=== PATIENT | male | born 1980 | race Two or more races ===

== ENCOUNTER 2024-08-10 10:42 | Outpatient (AMB) | payer MEDICAID, SELFPAY ==
[2024-08-10 10:56] VITALS: BP 144/89; PULSE 91; RESP 18; TEMP 36.4; O2SAT 98; BMI 22.2
--- NOTE | 2024-08-10 10:56 | PD.GSCLVISIT ---
Vital Signs - [facility] 08/10/24 10:56 Height 1.75 m Height Method Stated Weight 68.266 kg Weight Measurement Method Standing Scale BMI 22.2 BP 144/89 H Blood Pressure Source Automatic Cuff Blood Pressure Location Right Upper Arm Position Sitting Respiration 18 Pulse 91 Pulse Source Monitor Temp 97.5 F Temp Source Temporal Artery Scan Pulse Oximetry (%) 98 Oxygen Delivery Method Room Air Med/Allergies Allergies & Medications Allergies No Known Allergies Allergy (Verified 08/10/24 10:58) Medication Reconciliation sennosides 8.6 mg tablet (senna) 8.6 mg PO BID 07/25/24 [History Confirmed 08/10/24] flash glucose scanning reader (EcoLogic SolutionsStyle Jena 2 Tamiment) #1 ea 08/02/24 [Rx Confirmed 08/10/24] flash glucose sensor (FreeStyle Jena 2 Sensor kit) #2 ea 08/02/24 [Rx Confirmed 08/10/24] gabapentin 100 mg capsule 200 mg (2 x 100 mg) PO BID pain #30 caps 08/02/24 [Rx Confirmed 08/10/24] ibuprofen 600 mg tablet 600 mg PO Q6H PRN pain #30 tabs 08/02/24 [Rx Confirmed 08/10/24] metformin 500 mg tablet 500 mg PO BID #60 tabs 08/02/24 [Rx Confirmed 08/10/24] oxycodone-acetaminophen 5 mg-325 mg tablet (Percocet) 1 tab PO Q6H PRN pain #30 tabs 08/02/24 [Rx Confirmed 08/10/24] pen needle, diabetic 31 gauge x 3/16 (Pen Needle) #100 ea 08/02/24 [Rx Confirmed 08/10/24] blood sugar diagnostic (Accu-Chek Guide test strips) #100 ea 08/06/24 [Rx Confirmed 08/10/24] blood-glucose meter (Accu-Chek Guide Me Glucose Meter) #1 ea 08/06/24 [Rx Confirmed 08/10/24] insulin glargine 100 unit/mL (3 mL) subcutaneous pen (Lantus Solostar U-100 Insulin) 10 unit (0.1 mL) subcut QPM #15 mL 08/06/24 [Rx Confirmed 08/10/24] lisinopril 5 mg tablet 5 mg PO QDAY #30 tabs 08/06/24 [Rx Confirmed 08/10/24] multivitamin with minerals-folic acid 120 mcg chewable tablet (Diabetic Multivitamin) 1 tab PO Q OTHER DAY #30 tabs 08/06/24 [Rx Confirmed 08/10/24] MA Intake Visit Data Collection New Patient or Established: Established Patient (seen at [facility] within 3 years) Seen by Clinical Staff ONLY (RN/MA): No Reason for Visit:: F/U ABDOMINAL PAIN Pain Present Currently: No Technician Semiconductor Development Required: Yes PCP or OBGYN visit in last 3 months: Yes Hx Now: No Do You Feel Safe at Home: Yes Authorities Contacted: N/A Smoking Status Smoking Status: Never smoker Immunization / Flu Flu Vaccine in the Last 12 Months: No Flu Vaccine Exclusion Criteria: No Exclusion Criteria Past Medical History Past Medical History NEUROLOGIC: Negative Seizures CARDIAC: Negative Cardiac Disorders, Congestive Heart Failure or Hypertension RESPIRATORY: Negative Chronic Obstructive Pulmonary Disease (COPD) or Asthma GENITOURINARY: Negative Renal Disease ENDOCRINE: Negative Endocrine Disorders, Diabetes Mellitus Type 1 or Diabetes Mellitus Type 2 HEMATOLOGIC: Negative Sickle Cell Disease OTHER HISTORY: Negative Blood Transfusions or Anesthesia Reactions Social History SMOKING STATUS: Smoking status: Never smoker ALCOHOL: Alcohol Intake: Current HOUSING: Housing: Apartment LIVES WITH: Lives With: Spouse HPI HPI Narrative 43M who presented with signs and symptoms of SBO, findings of obstructing colon mass now s/p laparotomy, segmental colectomy and colo-colo anastomosis 07/30 here for planned follow up. Pt reports feeling well with no pain, no nausea, he is eating well and having regular BMs. He followed up with his PCP and received a referral to Dr Marquis, is awaitting the appt ROS Review of Systems Systems Reviewed: All systems reviewed, normal except as documented Objective/Exam General General Appearance: alert, cooperative and well groomed Resp Respiratory exam: Absent respiratory distress Abdominal Abdominal exam: Present soft and incision (midline incision healing well with no erythema, no fluctuance or tenderness, ludy removed); Absent distention or tenderness Results Pathology: invasive adenoCA with focal signet ring features, [id number] Assessment & Plan Diagnosis / Problem List (1) Colorectal cancer, stage III: Status: Acute Assessment & Plan: 43M who presented with signs and symptoms of SBO, findings of obstructing colon mass now s/p laparotomy, segmental colectomy and colo-colo anastomosis 07/30, with pathology showing [id number] invasive adenocarcinoma with signet ring features. I explained that adjuvant chemotherapy is recommended to prevent recurrence and offered chemoport insertion to hopefully expedite the process. I explained benefits/risks including bleeding, infection and injury to nearby structures including pneumothorax. Pt expressed understanding and agrees to proceed Chemoport insertion 08/26 Office Procedures [facility] Level of Care Nursing/Assessment Patient Status: Established Patient Nursing Assessment/Reassesment: Medication Reconciliation, Update PMH in EMR and Vital Signs Coordination of Care: Complex Care and Chronic Disease 1-5, Education Complex Pt/Fam, Consent,records obtained, informed consent, Results/Orders obtained and Staff clarify orders Special Needs: Language special needs Established Patient Charge Established Patient Point Assignment: 95 Established Patient Point Charge: EP Level 3 (80-115) Patient Portal Questionaires Social History Living Situation History Housing: Apartment Tobacco History Smoking Status: Never smoker Alcohol History Alcohol Intake: Current Domestic Abuse History Do You Feel Safe at Home: Yes Review of Systems Report any current symptoms Only answer those that you have currently: Past Medical History Past Medical History Have you ever been diagnosed with any of the following: Neurological Problems Seizures: No Cardiology Problems Congestive Heart Failure: No Hypertension: No Respiratory Problems Chronic Obstructive Pulmonary Disease (COPD): No Asthma: No Genital/Urinary Problems Renal Disease: No Endocrine Problems Diabetes Mellitus Type 1: No Diabetes Mellitus Type 2: No Blood Problems Sickle Cell Disease: No Other Problems Blood Transfusions: No Anesthesia Reactions: No
== END 2024-08-10 11:44 | disposition home or self-care (01) ==
PROVIDERS: Supervising Provider Surgery; Visit Provider Surgery
DX: Z48.3 Aftercare following surgery for neoplasm (principal); C18.9 Malignant neoplasm of colon, unspecified
CPT/HCPCS: 99213; G0463

== ENCOUNTER 2024-08-27 09:48 | Outpatient (AMB) | payer MEDICAID, SELFPAY ==
[2024-08-27 09:58] VITALS: BP 114/75; PULSE 87; RESP 19; TEMP 36.6; O2SAT 98
--- NOTE | 2024-08-27 09:58 | ACNOTE_ITS ---
Vital Signs 08/27/24 09:58 Weight 67.132 kg Weight Measurement Method Standing Scale BP 114/75 Blood Pressure Source Automatic Cuff Blood Pressure Location Left Upper Arm Position Sitting Respiration 19 Pulse 87 Pulse Source Monitor Temp 97.8 F Temp Source Oral Pulse Oximetry (%) 98 Oxygen Delivery Method Room Air Allergies/Meds Allergies & Medications Allergies No Known Allergies Allergy (Verified 08/27/24 09:59) Medication Reconciliation insulin glargine 100 unit/mL (3 mL) subcutaneous pen (Lantus Solostar U-100 Insulin) 10 unit (0.1 mL) subcut QPM #15 mL 08/06/24 [Rx Confirmed 08/27/24] lisinopril 5 mg tablet 5 mg PO QDAY #30 tabs 08/06/24 [Rx Confirmed 08/27/24] gabapentin 100 mg capsule 200 mg PO BID PRN pain 08/25/24 [History Confirmed 08/27/24] simethicone 80 mg chewable tablet 80 mg PO TID PRN abdominal distention #90 tabs 08/26/24 [Rx Confirmed 08/27/24] lancets 23 gauge (Acti-Kavon Lancets) #200 ea 08/27/24 [Rx] metformin 500 mg tablet 500 mg PO BID #60 tabs 08/27/24 [Rx] MA Intake Visit Data Collection New Patient or Established: Established Patient (seen at [facility] within 3 years) Seen by Clinical Staff ONLY (RN/MA): No Pain Present Currently: No Pain scale:: 0 Pain Scale Used: Morfin-Jimenes/Numerical PCP or OBGYN visit in last 3 months: Yes Do You Feel Safe at Home: Yes Authorities Contacted: N/A Smoking Status Smoking Status: Never smoker Immunization / Flu Flu Vaccine in the Last 12 Months: No Flu Vaccine Exclusion Criteria: No Exclusion Criteria Past Medical History Past Medical History NEUROLOGIC: Negative Neurological Disorders or Seizures CARDIAC: Positive Cardiac Disorders and Hypertension; Negative Congestive Heart Failure RESPIRATORY: Negative Chronic Obstructive Pulmonary Disease (COPD) or Asthma GASTROINTESTINAL: Positive Colorectal Cancer (July 2024); Negative Gastrointestinal Disorders (Constipation) or Hepatitis GENITOURINARY: Negative Genitourinary Disorders or Renal Disease ENDOCRINE: Positive Endocrine Disorders and Diabetes Mellitus Type 2; Negative Diabetes Mellitus Type 1 HEMATOLOGIC: Positive Blood Disorders and Anemia; Negative Sickle Cell Disease OTHER HISTORY: Positive Hospitalization (colon resection), Chicken Pox, Measles, Cancer and Colorectal Cancer (July 2024); Negative Shingles, Blood Transfusions, Blood Transfusion Reaction or Anesthesia Reactions Family History FAMILY HISTORY: Positive Family Surgery; Negative Family Psychiatric Problems, Family Respiratory Disorders, Family Cardiac Disorders, Family Gastrointestinal Problems, Family Cancer or Family Anesthesia Reaction Surgical History SURGICAL: Positive Bowel Surgery (Bowel resection) Social History SMOKING STATUS: Smoking status: Never smoker ALCOHOL: Alcohol Intake: Former HOUSING: Housing: Apartment LIVES WITH: Lives With: Spouse Patient Portal Questiondamaris Social History Living Situation History Housing: Apartment Tobacco History Smoking Status: Never smoker Alcohol History Alcohol Intake: Former Domestic Abuse History Do You Feel Safe at Home: Yes Review of Systems Report any current symptoms Only answer those that you have currently: Past Medical History Past Medical History Have you ever been diagnosed with any of the following: Neurological Problems Seizures: No Cardiology Problems Congestive Heart Failure: No Hypertension: Yes Respiratory Problems Chronic Obstructive Pulmonary Disease (COPD): No Asthma: No Stomache/Intestinal Problems Hepatitis: No Colorectal Cancer: Yes (July 2024) Genital/Urinary Problems Renal Disease: No Endocrine Problems Diabetes Mellitus Type 1: No Diabetes Mellitus Type 2: Yes Blood Problems Anemia: Yes Sickle Cell Disease: No Other Problems Hospitalization: Yes (colon resection) Shingles: No Blood Transfusions: No Blood Transfusion Reaction: No Anesthesia Reactions: No Chicken Pox: Yes Measles: Yes Cancer: Yes History of Present Illness HPI Narrative Patient is a 43 yo male with recently diagnosed invasive adenocarcinoma s/p se gment colectomy with colo-colo anastamosis and newly diagnosed diabetes mellitus that presented to [facility] ffor follow up and medication refill.Patient states to be felling better and is tolerating a regular diet now. Patient did have chemo port placed at right internal jugular vein on 08/26/[address] Martinez. Patient asked for refill on his metformin. Patient does have a follow up appointment on September 07 at cancer center for evaluation. Patient does endorse slight pain on right side of chest where chemo port was inserted, but only during palpation. Patient denies any bloody stools at this time or decreased appetite. Objective/Exam Narrative Physical exam: Gen: Well-developed, alert and oriented x 3, In good spirits. CVS: RRR. No M/R/G. Resp: CTA B/L. No rhonchi, rales, crackles or wheezing. Abd: soft, non-distended. Nontender. Active bowel sounds. Non tender. MSK: Good ROM in BUE & BLE. No edema or rash. Psych: appropriate mood and affect. Assessment & Plan Diagnosis / Problem List (1) Adenocarcinoma: Status: Acute Assessment & Plan: Patient with recent invasive adenocarcinoma of the colon diagnosis status post colon resection with colon to colon anastomosis. Biopsy results show pT4a N2b well-differentiated invasive adenocarcinoma with 8 out of 19 lymph nodes positive for malignancy. Plan: F/u with appointment on September 07 at cancer center. Chemo port inserted on 08/26/24 Continue with pain medication as needed. (2) Diabetes mellitus, insulin dependent (IDDM), uncontrolled: Status: Acute Assessment & Plan: Newly diagnosed diabetes mellitus A1c 10.1. Plan: Patient on Lantus 10 units daily Patient on metformin 500 twice daily Patient to follow-up in 2 months with glucometer readings and will repeat A1c. (3) Hypertension associated with diabetes: Status: Acute Assessment & Plan: Stable Plan: Continue on lisinopril 5 mg daily Plan Patient will follow-up with oncology and surgery. Patient to continue with insulin and metformin. Patient to follow-up in 2 month, will repeat A1c during next visit. Additional Assessment Attending note: I, Vamsi Landaverde MD, attest that I was physically present for the chirinos portions of the service and evaluated the patient with the resident and I reviewed and discussed the case with the resident and agree with the resident's findings and plans of care as documented above. Recent diagnosis of invasive adenocarcinoma of the colon status post segmental colectomy with anastomosis. Newly diagnosed diabetes mellitus insulin requiring. Diabetes self-care reviewed including size, footcare, eye care. Tolerating metformin and Lantus. Patient had chemotherapy port inserted day prior. Has follow-up on September 07 at cancer treatment center. Afebrile with stable vital signs today. Vamsi Landaverde MD Physician Billing Established Patient Established Patient: E/M Level 3-CPT 34247 Office Procedures [facility] Level of Care Nursing/Assessment Patient Status: Established Patient Nursing Assessment/Reassessment: Medication Reconciliation, Update PMH in EMR and Vital Signs Coordination of Care: Complex Care and Chronic Disease 1-5, Education Complex Pt/Fam and Staff clarify orders Established Patient Charge Established Patient Point Assignment: 85 Established Patient Point Charge: Level 3 (80-115)
== END 2024-08-27 10:32 | disposition home or self-care (01) ==
LOC: HODAHC 09:48
PROVIDERS: PCP Student in an Organized Health Care Education/Training Program; Referring Provider Student in an Organized Health Care Education/Training Program; Supervising Provider Internal Medicine; Visit Provider Student in an Organized Health Care Education/Training Program
DX: E11.9 Type 2 diabetes mellitus without complications (principal); Z79.84 Long term (current) use of oral hypoglycemic drugs; C18.9 Malignant neoplasm of colon, unspecified; Z79.4 Long term (current) use of insulin; I15.2 Hypertension secondary to endocrine disorders; Z79.899 Other long term (current) drug therapy
CPT/HCPCS: 99213; G0463

== ENCOUNTER 2024-10-06 07:41 | Outpatient (RCR) | payer MEDICAID, SELFPAY ==
--- NOTE | 2024-09-07 10:07 | CTCCONSULT_ITS ---
[address] [address] RE: RAY PULIDO.: 1980 AGE: 44 DATE OF CONSULTATION: 09/07/2024 DIAGNOSIS: Malignant neoplasm of colon, unspecified [ICD10] C18.9 REFERRING PHYSICIAN: Raj Puckett PRIMARY PHYSICIAN :Raj Puckett REASON FOR CONSULTATION: Colon cancer HISTORY OF PRESENT ILLNESS: 44 yr old with new diagnosis of colon cancer. His baseline weight is 185 and lost weight to 142 pound s. He have healed well. Surgery was in July 2024. He does not have colostomy bag . PAST MEDICAL HISTORY: DM FAMILY HISTORY: Cancer History - Father - DENIES Cancer History - Mother - DENIES Cancer History - Sibling - DENIES, HAS 14 SIBLINGS WITH NO HISTORY CANCER Cancer History - Children - DENIES Cancer History - - COLON CANCER DX 07/30/24 SOCIAL HISTORY: Occupational History - SITE CONTROLLER Education Level - Completed something less than 8th grade Exercise Regularly - Yes 2-3 times a week Marital Status - Cultural/Pentecostalism Considerati - CAODAISM Tobacco Pack per Day - 0 Tobacco Use Note - DENIES ETOH Use Note - 1 CASE OF BEER A WEEK FOR MORE THAN 10YEARS, QUIT 2MONTHS AG Drug Note - DENIES Social History Note 2 - 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 GI: No nausea, vomiting, diarrhea or constipation. CVS: No palpitations or angina pains. Respiratory: No cough, chest pain or shortness of breath. VITAL SIGNS: Date 09/07/2024 Time 8:29 AM Vital Signs, Weight and PS ? ??T (F) (F) 99.7 ??P 97 ??B/P (mmHg) 133/84 ??Height (in) (inch) 69 ??Weight (lb) (lb) 147.4 ??BSA(D) (m*2) 1.81 PHYSICAL EXAMINATION: Alert and oriented times 4 Conjunctivae is white. Oral cavity is moist . Chest is clear to auscultation. No wheezes or rales audible. CVS: Rhythm regular, no murmurs or gallops present. Abdomen is soft. No hepatosplenomegaly. Extremities: No pedal edema or cyanosis. LABORATORY DATA: Date Time ASSESSMENT: 1) Colon cancer stage 3C t4b N2b M0 2) High risk features include T4b disease, neural vascular invasion and lymph nodes positive and invo lvement of the visceral p peritoneum. No perforation PLAN: Patient will need adjuvant chemotherapy for 6 months Port catheter already in place ?FOLFOX AJDUVANT FOR 6 MONTHS Discussed side effects of chemotherapy and benefits. I recommended chemotherapy and patient and agreed to chemotherapy after understanding the side effects. Magic mouthwash will be sent to patient to be used as needed. ORDERS: Infusion 5 Hours Comprehensive Metabolic Panel - 12 + CEA + CBC with Auto Diff MD Follow Up 3 Week + RETURN TO CLINIC: cc: Carlos Alberto Puckett, Referring: Raj Puckett Electronically Signed 09/07/2024 at 10:05 AM Dillon Capps MD Patient: RAY PULIDO : 1980 MR#: [id number] Account: [id number] FOLLOW UP NOTE Page 4 of 4
[2024-09-21 16:16] LABS: Basophils % (Auto) 1 % (0-2.5); Eosinophils # (Auto) 0.1 Thou/mm3 (0.0-0.5); Eosinophils % (Auto) 2 % (0-10); Hematocrit 32.7 % (41.0-53.0); Hemoglobin 11.7 g/dL (13.5-16.0); Immature Granulocytes % (Auto) 0 % (0-0); Immature Granulocytes Auto 0.01 Thou/mm3 (0.00-0.00); Lymphocytes # (Auto) 2.2 Thou/mm3 (1.0-4.8); Lymphocytes % (Auto) 36 % (10-50); Mean Corpuscular HGB Conc 35.8 g/dl (31.0-37.0); Mean Corpuscular Hemoglobin 27.5 pg (25.0-35.0); Mean Corpuscular Volume 77 fL (80-100); Monocytes # (Auto) 0.4 Thou/mm3 (0.0-0.8); Monocytes % (Auto) 6 % (0-12); Neutrophils # (Auto) 3.5 Thou/mm3 (1.8-7.7); Neutrophils % (Auto) 56 % (37-80); Nucleated Red Blood Cell % 0 /100 WBC (0); Platelet Count 283 Thou/mm3 (140-440); Red Blood Count 4.26 Miln/mm3 (4.50-5.90); White Blood Count 6.2 Thou/mm3 (3.8-10.6)
[2024-09-21 16:31] LABS: Alanine Aminotransferase 13 U/L (10-49); Albumin, Serum 4.9 gm/dL (3.5-5.0); Albumin/Globulin Ratio 1.9 (1.2-2.2); Alkaline Phosphatase 68 U/L (46-116); Anion Gap 8 (7-16); Aspartate Amino Transferase 16 U/L (0-34); BUN/Creatinine Ratio 18 Ratio (12-20); Bilirubin,Total 0.5 mg/dL (0.3-1.2); Blood Urea Nitrogen 11 mg/dL (9-23); Calcium 9.9 mg/dL (8.3-10.6); Calcium (Corrected) 9.9 mg/dL (8.5-10.1); Carbon Dioxide 27.9 mMol/L (20.0-31.0); Chloride 102 mMol/L (98-107); Creatinine (Component) 0.6 mg/dL (0.6-1.3); Globulin 2.6 gm/dL (2.3-3.5); Glucose 126 mg/dL (74-106); Osmolality,Calculated 277 (275-295); Potassium 3.8 mMol/L (3.4-5.1); Sodium 138 mMol/L (136-145); Total Protein 7.5 gm/dL (5.7-8.2); eGFR > 60 See Note
[2024-09-21 16:35] LABS: Carcinoembryonic Antigen 1.2 ng/mL (0.0-5.0)
[2024-10-05 10:29] LABS: Basophils % (Auto) 1 % (0-2.5); Eosinophils # (Auto) 0.1 Thou/mm3 (0.0-0.5); Eosinophils % (Auto) 1 % (0-10); Hematocrit 31.2 % (41.0-53.0); Hemoglobin 11.1 g/dL (13.5-16.0); Immature Granulocytes % (Auto) 0 % (0-0); Immature Granulocytes Auto 0.01 Thou/mm3 (0.00-0.00); Lymphocytes # (Auto) 1.6 Thou/mm3 (1.0-4.8); Lymphocytes % (Auto) 38 % (10-50); Mean Corpuscular HGB Conc 35.6 g/dl (31.0-37.0); Mean Corpuscular Hemoglobin 27.6 pg (25.0-35.0); Mean Corpuscular Volume 78 fL (80-100); Monocytes # (Auto) 0.3 Thou/mm3 (0.0-0.8); Monocytes % (Auto) 8 % (0-12); Neutrophils # (Auto) 2.3 Thou/mm3 (1.8-7.7); Neutrophils % (Auto) 53 % (37-80); Nucleated Red Blood Cell % 0 /100 WBC (0); Platelet Count 240 Thou/mm3 (140-440); RDW Standard Deviation 34.5 fL (35.1-43.9); Red Blood Count 4.02 Miln/mm3 (4.50-5.90); White Blood Count 4.3 Thou/mm3 (3.8-10.6)
[2024-10-05 10:48] LABS: Alanine Aminotransferase 12 U/L (10-49); Albumin, Serum 4.5 gm/dL (3.5-5.0); Albumin/Globulin Ratio 1.9 (1.2-2.2); Alkaline Phosphatase 67 U/L (46-116); Anion Gap 9 (7-16); Aspartate Amino Transferase 14 U/L (0-34); BUN/Creatinine Ratio 18 Ratio (12-20); Bilirubin,Total 0.7 mg/dL (0.3-1.2); Blood Urea Nitrogen 11 mg/dL (9-23); Carbon Dioxide 25.8 mMol/L (20.0-31.0); Chloride 102 mMol/L (98-107); Creatinine (Component) 0.6 mg/dL (0.6-1.3); Globulin 2.4 gm/dL (2.3-3.5); Glucose 239 mg/dL (74-106); Osmolality,Calculated 281 (275-295); Potassium 3.7 mMol/L (3.4-5.1); Sodium 137 mMol/L (136-145); Total Protein 6.9 gm/dL (5.7-8.2); eGFR > 60 See Note
[2024-10-05 10:50] LABS: Carcinoembryonic Antigen 1.1 ng/mL (0.0-5.0)
== END 2024-10-06 23:59 | disposition home or self-care (01) ==
LOC: SCTC 07:41
PROVIDERS: PCP Student in an Organized Health Care Education/Training Program; Referring Provider Student in an Organized Health Care Education/Training Program; Visit Provider Internal Medicine Hematology & Oncology
DX: Z51.11 Encounter for antineoplastic chemotherapy (principal); C18.9 Malignant neoplasm of colon, unspecified
CPT/HCPCS: 36591; 80053; 82378; 85025; 96366; 96367; 96368; 96375; 96411; 96413; 96415; 96416; 99213; 99424; 99425; A4216; J0640; J1100; J1453; J1642; J2405; J9190; J9263; G0463

== ENCOUNTER 2024-10-29 10:19 | Outpatient (AMB) | payer MEDICAID, SELFPAY ==
[2024-10-29 10:30] VITALS: BP 114/77; PULSE 107; RESP 16; TEMP 36.6; O2SAT 99; BMI 21.6
--- NOTE | 2024-10-29 10:30 | PD.RESCLINIC ---
Vital Signs 10/29/24 10:30 Height 1.75 m Height Method Stated Weight 66.451 kg Weight Measurement Method Standing Scale BMI 21.6 BP 114/77 Blood Pressure Source Automatic Cuff Blood Pressure Location Left Upper Arm Position Sitting Respiration 16 Pulse 107 H Pulse Source Monitor Temp 97.8 F Temp Source Oral Pulse Oximetry (%) 99 Oxygen Delivery Method Room Air Allergies/Meds Allergies & Medications Allergies No Known Allergies Allergy (Verified 10/29/24 10:32) Medication Reconciliation gabapentin 100 mg capsule 200 mg PO BID PRN pain 08/25/24 [History Confirmed 10/29/24] simethicone 80 mg chewable tablet 80 mg PO TID PRN abdominal distention #90 tabs 08/26/24 [Rx Confirmed 10/29/24] lancets 23 gauge (Acti-Kavon Lancets) #200 ea 08/27/24 [Rx Confirmed 10/29/24] insulin glargine 100 unit/mL (3 mL) subcutaneous pen (Lantus Solostar U-100 Insulin) 10 unit (0.1 mL) subcut QPM #15 mL 10/29/24 [Rx] lisinopril 5 mg tablet 5 mg PO QDAY #30 tabs 10/29/24 [Rx] metformin 500 mg tablet 500 mg PO BID #60 tabs 10/29/24 [Rx] MA Intake Visit Data Collection New Patient or Established: Established Patient (seen at [facility] within 3 years) Seen by Clinical Staff ONLY (RN/MA): No Pain Present Currently: No Oracle Database Manager Required: Yes PCP or OBGYN visit in last 3 months: Yes Hx Now: No Do You Feel Safe at Home: Yes Authorities Contacted: N/A Smoking Status Smoking Status: Never smoker Immunization / Flu Flu Vaccine in the Last 12 Months: No Flu Vaccine Exclusion Criteria: No Exclusion Criteria Past Medical History Past Medical History NEUROLOGIC: Negative Neurological Disorders or Seizures CARDIAC: Positive Cardiac Disorders and Hypertension; Negative Congestive Heart Failure RESPIRATORY: Negative Chronic Obstructive Pulmonary Disease (COPD) or Asthma GASTROINTESTINAL: Positive Colorectal Cancer (July 2024); Negative Gastrointestinal Disorders (Constipation) or Hepatitis GENITOURINARY: Negative Genitourinary Disorders or Renal Disease ENDOCRINE: Positive Endocrine Disorders and Diabetes Mellitus Type 2; Negative Diabetes Mellitus Type 1 HEMATOLOGIC: Positive Blood Disorders and Anemia; Negative Sickle Cell Disease OTHER HISTORY: Positive Hospitalization (colon resection), Chicken Pox, Measles, Cancer and Colorectal Cancer (July 2024); Negative Shingles, Blood Transfusions, Blood Transfusion Reaction or Anesthesia Reactions Family History FAMILY HISTORY: Positive Family Surgery; Negative Family Psychiatric Problems, Family Respiratory Disorders, Family Cardiac Disorders, Family Gastrointestinal Problems, Family Cancer or Family Anesthesia Reaction Surgical History SURGICAL: Positive Bowel Surgery (Bowel resection) Social History SMOKING STATUS: Smoking status: Never smoker ALCOHOL: Alcohol Intake: Former HOUSING: Housing: Apartment LIVES WITH: Lives With: Spouse Patient Efren Garduno Social History Living Situation History Housing: Apartment Tobacco History Smoking Status: Never smoker Alcohol History Alcohol Intake: Former Domestic Abuse History Do You Feel Safe at Home: Yes Review of Systems Report any current symptoms Only answer those that you have currently: Past Medical History Past Medical History Have you ever been diagnosed with any of the following: Neurological Problems Seizures: No Cardiology Problems Congestive Heart Failure: No Hypertension: Yes Respiratory Problems Chronic Obstructive Pulmonary Disease (COPD): No Asthma: No Stomache/Intestinal Problems Hepatitis: No Colorectal Cancer: Yes (July 2024) Genital/Urinary Problems Renal Disease: No Endocrine Problems Diabetes Mellitus Type 1: No Diabetes Mellitus Type 2: Yes Blood Problems Anemia: Yes Sickle Cell Disease: No Other Problems Hospitalization: Yes (colon resection) Shingles: No Blood Transfusions: No Blood Transfusion Reaction: No Anesthesia Reactions: No Chicken Pox: Yes Measles: Yes Cancer: Yes History of Present Illness HPI Narrative Patient is a 43 yo male with recently diagnosed invasive adenocarcinoma s/p segment colectomy with colo-colo anastamosis and newly diagnosed diabetes mellitus that presented to [facility] for medication refill and follow-up. Patient recently started on chemotherapy with FOLFOX AJDUVANT FOR 6 MONTHS. Patient is tolerating chemo well and denies any decreased appetite. Patient is otherwise doing well and is tolerating medication. Patient does note that his sugars have been slightly elevated with readings in the 140s at times. Will obtain A1c and microalbumin with a phone appointment in 2 weeks regarding A1c results and in office follow-up in 3 months. Patient denying any shortness of breath, chest pain, nausea, vomiting, fever, chills, abdominal pain, or melena/hematochezia. Appetite is well and patient is tolerating medication as well. Objective/Exam Narrative Physical exam: Gen: Well-developed, alert and oriented x 3, In good spirits. CVS: Tachycardic. No M/R/G. Resp: CTA B/L. No rhonchi, rales, crackles or wheezing. Abd: soft, non-distended. Nontender. Active bowel sounds. Non tender. MSK: Good ROM in BUE & BLE. No edema or rash. Psych: appropriate mood and affect. Assessment & Plan Diagnosis / Problem List (1) Adenocarcinoma: Status: Acute Assessment & Plan: Patient with recent invasive adenocarcinoma of the colon diagnosis status post colon resection with colon to colon anastomosis. Biopsy results show pT4a N2b well-differentiated invasive adenocarcinoma with 8 out of 19 lymph nodes positive for malignancy. Patient started on chemotherapy with FOLFOX AJDUVANT FOR 6 MONTHS Patient continue management at cancer center Plan: F/u with cancer center. Chemo port inserted on 08/26/24 Continue with pain medication as needed. (2) Diabetes mellitus, insulin dependent (IDDM), uncontrolled: Status: Acute Assessment & Plan: Newly diagnosed diabetes mellitus A1c 10.1. Patient states sugars runs in the 130s to 140s Plan: Patient on Lantus 10 units daily Patient on metformin 500 twice daily Ordered A1c and microalbumin, will adjust medications pending results. Referral for podiatry and ophthalmology made, follow-up with both. (3) Hypertension associated with diabetes: Status: Acute Assessment & Plan: Stable Plan: Continue on lisinopril 5 mg daily Plan Patient will continue with chemo FOLFOX AJDUVANT FOR 6 MONTHS and follow-up at cancer center. Patient to continue with insulin and metformin. Will follow-up on A1c and microalbumin and adjust medication pending results. Follow-up with podiatry and ophthalmology. Orders: Orders Microalbumin, Ur Rnd w Creat Today E11.9 - Type 2 diabetes mellitus without complications, Z79.4 - predatory animal exterminator (current) use of insulin Ambulatory Hemoglobin A1C Today E11.9 - Type 2 diabetes mellitus without complications, Z79.4 - intermediate (current) use of insulin Referrals Podiatry E11.9 - Type 2 diabetes mellitus without complications, Z79.4 - intermediate (current) use of insulin Ophthalmology E11.9 - Type 2 diabetes mellitus without complications, Z79.4 - intermediate (current) use of insulin Office Procedures [facility] Level of Care Nursing/Assessment Patient Status: Established Patient Nursing Assessment/Reassessment: Medication Reconciliation, Update PMH in EMR and Vital Signs Coordination of Care: Complex Care and Chronic Disease 1-5, Consent,records obtained, informed consent, Education Simp Pt/Fam, Lab and Imaging orders and Staff clarify orders Established Patient Charge Established Patient Point Assignment: 100 Established Patient Point Charge: EP Level 3 (80-115)
== END 2024-10-29 11:09 | disposition home or self-care (01) ==
LOC: HODAHC 10:19
PROVIDERS: PCP Student in an Organized Health Care Education/Training Program; Referring Provider Student in an Organized Health Care Education/Training Program; Supervising Provider Internal Medicine; Visit Provider Student in an Organized Health Care Education/Training Program
DX: E11.9 Type 2 diabetes mellitus without complications (principal); I15.2 Hypertension secondary to endocrine disorders; C18.9 Malignant neoplasm of colon, unspecified; Z79.4 Long term (current) use of insulin
CPT/HCPCS: 99213; G0463

== ENCOUNTER 2024-11-05 08:52 | Outpatient (RCR) | payer MEDICAID, SELFPAY ==
[2024-10-19 14:08] LABS: Basophils % (Auto) 0 % (0-2.5); Eosinophils % (Auto) 1 % (0-10); Hematocrit 33.4 % (41.0-53.0); Hemoglobin 11.8 g/dL (13.5-16.0); Immature Granulocytes % (Auto) 0 % (0-0); Immature Granulocytes Auto 0.01 Thou/mm3 (0.00-0.00); Lymphocytes # (Auto) 1.5 Thou/mm3 (1.0-4.8); Lymphocytes % (Auto) 31 % (10-50); Mean Corpuscular HGB Conc 35.3 g/dl (31.0-37.0); Mean Corpuscular Hemoglobin 27.6 pg (25.0-35.0); Mean Corpuscular Volume 78 fL (80-100); Monocytes # (Auto) 0.4 Thou/mm3 (0.0-0.8); Monocytes % (Auto) 8 % (0-12); Neutrophils # (Auto) 2.9 Thou/mm3 (1.8-7.7); Neutrophils % (Auto) 60 % (37-80); Nucleated Red Blood Cell % 0 /100 WBC (0); Platelet Count 223 Thou/mm3 (140-440); RDW Standard Deviation 37.6 fL (35.1-43.9); Red Blood Count 4.28 Miln/mm3 (4.50-5.90); White Blood Count 4.8 Thou/mm3 (3.8-10.6)
[2024-10-19 14:27] LABS: Alanine Aminotransferase 9 U/L (10-49); Albumin, Serum 4.5 gm/dL (3.5-5.0); Albumin/Globulin Ratio 1.6 (1.2-2.2); Alkaline Phosphatase 67 U/L (46-116); Anion Gap 11 (7-16); Aspartate Amino Transferase 13 U/L (0-34); BUN/Creatinine Ratio 17 Ratio (12-20); Bilirubin,Total 0.7 mg/dL (0.3-1.2); Blood Urea Nitrogen 12 mg/dL (9-23); Calcium 9.6 mg/dL (8.3-10.6); Calcium (Corrected) 9.6 mg/dL (8.5-10.1); Carbon Dioxide 25.8 mMol/L (20.0-31.0); Chloride 100 mMol/L (98-107); Creatinine (Component) 0.7 mg/dL (0.6-1.3); Globulin 2.8 gm/dL (2.3-3.5); Glucose 295 mg/dL (74-106); Osmolality,Calculated 284 (275-295); Potassium 3.7 mMol/L (3.4-5.1); Sodium 137 mMol/L (136-145); Total Protein 7.3 gm/dL (5.7-8.2); eGFR > 60 See Note
[2024-10-19 18:35] LABS: Carcinoembryonic Antigen 1.8 ng/mL (0.0-5.0)
[2024-11-02 12:11] LABS: Basophils % (Auto) 0 % (0-2.5); Eosinophils % (Auto) 1 % (0-10); Hematocrit 33.2 % (41.0-53.0); Immature Granulocytes % (Auto) 0 % (0-0); Immature Granulocytes Auto 0.01 Thou/mm3 (0.00-0.00); Lymphocytes # (Auto) 1.8 Thou/mm3 (1.0-4.8); Lymphocytes % (Auto) 33 % (10-50); Mean Corpuscular HGB Conc 36.1 g/dl (31.0-37.0); Mean Corpuscular Hemoglobin 27.7 pg (25.0-35.0); Mean Corpuscular Volume 77 fL (80-100); Monocytes # (Auto) 0.6 Thou/mm3 (0.0-0.8); Monocytes % (Auto) 10 % (0-12); Neutrophils # (Auto) 3.1 Thou/mm3 (1.8-7.7); Neutrophils % (Auto) 56 % (37-80); Nucleated Red Blood Cell % 0 /100 WBC (0); Platelet Count 201 Thou/mm3 (140-440); Red Blood Count 4.33 Miln/mm3 (4.50-5.90); White Blood Count 5.5 Thou/mm3 (3.8-10.6)
[2024-11-02 12:56] LABS: Alanine Aminotransferase < 7 U/L (10-49); Albumin, Serum 4.7 gm/dL (3.5-5.0); Albumin/Globulin Ratio 1.9 (1.2-2.2); Alkaline Phosphatase 64 U/L (46-116); Anion Gap 10 (7-16); Aspartate Amino Transferase 13 U/L (0-34); BUN/Creatinine Ratio 17 Ratio (12-20); Bilirubin,Total 0.6 mg/dL (0.3-1.2); Blood Urea Nitrogen 12 mg/dL (9-23); Carbon Dioxide 24.6 mMol/L (20.0-31.0); Chloride 100 mMol/L (98-107); Creatinine (Component) 0.7 mg/dL (0.6-1.3); Globulin 2.5 gm/dL (2.3-3.5); Glucose 204 mg/dL (74-106); Osmolality,Calculated 275 (275-295); Potassium 3.8 mMol/L (3.4-5.1); Sodium 135 mMol/L (136-145); Total Protein 7.2 gm/dL (5.7-8.2); eGFR > 60 See Note
[2024-11-02 13:28] LABS: Carcinoembryonic Antigen 1.9 ng/mL (0.0-5.0)
== END 2024-11-06 23:59 | disposition home or self-care (01) ==
LOC: SCTC 08:52
PROVIDERS: PCP Student in an Organized Health Care Education/Training Program; Referring Provider Student in an Organized Health Care Education/Training Program; Visit Provider Internal Medicine Hematology & Oncology
DX: Z51.11 Encounter for antineoplastic chemotherapy (principal); C18.9 Malignant neoplasm of colon, unspecified; Z90.49 Acquired absence of other specified parts of digestive tract
CPT/HCPCS: 36591; 80053; 82378; 85025; 96366; 96367; 96368; 96411; 96413; 96415; 96416; 99211; A4216; J0640; J1100; J1453; J1642; J2405; J7050; J7060; J9190; J9263; G0463

== ENCOUNTER 2024-12-03 08:16 | Outpatient (RCR) | payer MEDICAID, SELFPAY ==
[2024-11-16 11:24] LABS: Basophils % (Auto) 0 % (0-2.5); Eosinophils % (Auto) 1 % (0-10); Hematocrit 33.2 % (41.0-53.0); Hemoglobin 11.8 g/dL (13.5-16.0); Immature Granulocytes % (Auto) 0 % (0-0); Lymphocytes # (Auto) 1.5 Thou/mm3 (1.0-4.8); Lymphocytes % (Auto) 35 % (10-50); Mean Corpuscular HGB Conc 35.5 g/dl (31.0-37.0); Mean Corpuscular Hemoglobin 27.3 pg (25.0-35.0); Mean Corpuscular Volume 77 fL (80-100); Monocytes # (Auto) 0.4 Thou/mm3 (0.0-0.8); Monocytes % (Auto) 10 % (0-12); Neutrophils # (Auto) 2.3 Thou/mm3 (1.8-7.7); Neutrophils % (Auto) 54 % (37-80); Nucleated Red Blood Cell % 0 /100 WBC (0); Platelet Count 204 Thou/mm3 (140-440); RDW Standard Deviation 38.3 fL (35.1-43.9); Red Blood Count 4.32 Miln/mm3 (4.50-5.90); White Blood Count 4.3 Thou/mm3 (3.8-10.6)
[2024-11-16 11:35] LABS: Alanine Aminotransferase < 7 U/L (10-49); Albumin, Serum 4.5 gm/dL (3.5-5.0); Albumin/Globulin Ratio 1.6 (1.2-2.2); Alkaline Phosphatase 65 U/L (46-116); Anion Gap 8 (7-16); Aspartate Amino Transferase 13 U/L (0-34); BUN/Creatinine Ratio 22 Ratio (12-20); Bilirubin,Total 0.7 mg/dL (0.3-1.2); Blood Urea Nitrogen 13 mg/dL (9-23); Calcium 9.9 mg/dL (8.3-10.6); Calcium (Corrected) 9.9 mg/dL (8.5-10.1); Carbon Dioxide 25.8 mMol/L (20.0-31.0); Chloride 105 mMol/L (98-107); Creatinine (Component) 0.6 mg/dL (0.6-1.3); Globulin 2.8 gm/dL (2.3-3.5); Glucose 243 mg/dL (74-106); Osmolality,Calculated 285 (275-295); Potassium 3.8 mMol/L (3.4-5.1); Sodium 139 mMol/L (136-145); Total Protein 7.3 gm/dL (5.7-8.2); eGFR > 60 See Note
[2024-11-16 11:36] LABS: Carcinoembryonic Antigen 1.2 ng/mL (0.0-5.0)
[2024-11-30 08:47] LABS: Basophils % (Auto) 0 % (0-2.5); Eosinophils # (Auto) 0.1 Thou/mm3 (0.0-0.5); Eosinophils % (Auto) 1 % (0-10); Hematocrit 33.2 % (41.0-53.0); Immature Granulocytes % (Auto) 0 % (0-0); Immature Granulocytes Auto 0.01 Thou/mm3 (0.00-0.00); Lymphocytes # (Auto) 1.6 Thou/mm3 (1.0-4.8); Lymphocytes % (Auto) 31 % (10-50); Mean Corpuscular HGB Conc 36.1 g/dl (31.0-37.0); Mean Corpuscular Hemoglobin 27.8 pg (25.0-35.0); Mean Corpuscular Volume 77 fL (80-100); Monocytes # (Auto) 0.5 Thou/mm3 (0.0-0.8); Monocytes % (Auto) 10 % (0-12); Neutrophils # (Auto) 2.9 Thou/mm3 (1.8-7.7); Neutrophils % (Auto) 57 % (37-80); Nucleated Red Blood Cell % 0 /100 WBC (0); Platelet Count 196 Thou/mm3 (140-440); RDW Standard Deviation 38.8 fL (35.1-43.9); Red Blood Count 4.31 Miln/mm3 (4.50-5.90); White Blood Count 5.1 Thou/mm3 (3.8-10.6)
[2024-11-30 09:16] LABS: Alanine Aminotransferase < 7 U/L (10-49); Albumin, Serum 4.5 gm/dL (3.5-5.0); Albumin/Globulin Ratio 1.8 (1.2-2.2); Alkaline Phosphatase 84 U/L (46-116); Anion Gap 11 (7-16); Aspartate Amino Transferase 12 U/L (0-34); BUN/Creatinine Ratio 28 Ratio (12-20); Bilirubin,Total 0.5 mg/dL (0.3-1.2); Blood Urea Nitrogen 17 mg/dL (9-23); Calcium 9.4 mg/dL (8.3-10.6); Calcium (Corrected) 9.4 mg/dL (8.5-10.1); Carbon Dioxide 24.4 mMol/L (20.0-31.0); Chloride 102 mMol/L (98-107); Creatinine (Component) 0.6 mg/dL (0.6-1.3); Globulin 2.5 gm/dL (2.3-3.5); Glucose 250 mg/dL (74-106); Osmolality,Calculated 283 (275-295); Potassium 3.9 mMol/L (3.4-5.1); Sodium 137 mMol/L (136-145); eGFR > 60 See Note
[2024-11-30 09:40] LABS: Carcinoembryonic Antigen 1.6 ng/mL (0.0-5.0)
== END 2024-12-04 23:59 | disposition home or self-care (01) ==
LOC: SCTC 08:16
PROVIDERS: PCP Student in an Organized Health Care Education/Training Program; Referring Provider Student in an Organized Health Care Education/Training Program; Visit Provider Internal Medicine Hematology & Oncology
DX: Z51.11 Encounter for antineoplastic chemotherapy (principal); C18.4 Malignant neoplasm of transverse colon
CPT/HCPCS: 36591; 80053; 82378; 85025; 96366; 96367; 96368; 96411; 96413; 96415; 96416; A4216; J0640; J1100; J1453; J1642; J2405; J7050; J7060; J9190; J9263

== ENCOUNTER 2024-12-31 08:54 | Outpatient (RCR) | payer MEDICAID, SELFPAY ==
--- NOTE | 2024-12-13 22:06 | CTCFLWUP_ITS ---
Patient: RAY PULIDO : 1980 Page 2 of 2 FOLLOW UP NOTE DATE OF SERVICE: 12/13/2024 NAME: RAY PULIDO ACCOUNT: [id number] : 1980 AGE: 44 INTERVAL HISTORY: Patient is on adjuvant FOLFOX and doing well. Patient have completed 6 cycles of chemotherapy with FOLFOX. ONCOLOGY HISTORY: DIAGNOSIS: Malignant neoplasm of colon, unspecified [ICD10] C18.9 DATE OF DIAGNOSIS: 07/29/2024 STAGE/TNM: IIIC T4a N2b M0 TREATMENT HISTORY: Care?Plan Start?Date Cycle Day Intent mFOLFOX-6?-?5FU?400?+?2400?CIV,?LVR?400,OXALIplat?85 09/22/2024 1 14 Curative?(adjuvant) HISTORY OF PRESENT ILLNESS: 44 yr old with new diagnosis of colon cancer. His baseline weight is 185 and lost weight to 142 pounds. He have healed well. Surgery was in July 2024. He does not have colostomy bag . OTHER MEDICAL HISTORY/CONDITIONS: HYPERTENSION DIABETES MELLITUS ON METFORMIN COLON SX, EXPLORATORY LAPAROTOMY 07/30/24 RUC PORT INSERTION 08/26/24 ?Clone Other Med Hx? 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 insulin glargine - 100 unit/mL 10 Units As directed 2. lisinopril - 5 mg 1 tab Daily 3. metFORMIN - 500 mg 1 tab Twice a Day?[place]ra Meds? Medications Last Reconciled by Riddhi Evans MA on 12/07/2024 (Reconcile on Approval: ?) ALLERGIES: No Known Allergies REVIEW OF SYSTEMS: A complete 14-point review of systems was performed and is negative except as noted in interval history. PHYSICAL EXAMINATION: VITAL SIGNS: PAIN: None ECOG Performance Status: 0 - Asymptomatic and fully active GENERAL APPEARANCE: Appears well, in no apparent distress, appropriately interactive. HEENT: Normocephalic, no temporal wasting, normal conjunctiva, no scleral icterus, normal hearing, lips without lesions, neck normal range of motion. CARDIOVASCULAR: Not assessed. PULMONARY: Normal respiratory effort, no respiratory distress or use of accessory muscles, speaking in full sentences, no tachypnea. EXTREMITIES: No pedal edema or cyanosis. SKIN: Normal skin appearance. NEUROLOGIC: Alert and oriented x4. PSHYCHIATRIC: Appropriate affect, mood normal, behavior normal, intact thought and speech. LABORATORY DATA: I have personally reviewed and interpreted each of the patient?s relevant lab tests, abnormal findings are below: Date 11/16/24 11/30/24 ??WHITE?BLOOD?COUNT?(Thou/mm3) ? 5.1 ??RED?BLOOD?COUNT?(Miln/mm3) ? 4.31?L ??HEMOGLOBIN?(gm/dl) ? 12.0?L ??HEMATOCRIT?(%) ? 33.2?L ??PLATELET?COUNT?(Thou/mm3) ? 196 ??NEUTROPHILS?%,?AUTO?(%) ? 57 ??LYMPH?%,?AUTO?(%) ? 31 ??NEUTROPHILS,?AUTO?(Thou/mm3) ? 2.9 ??GLUCOSE,RANDOM?(mg/dL) 243?H 250?H ??BLOOD?UREA?NITROGEN?(mg/dL) 13 17 ??CREATININE?(mg/dL) 0.60 0.60 ??SODIUM?(mmol/L) 139 137 ??POTASSIUM?(mmol/L) 3.8 3.9 ??CHLORIDE?(mmol/L) 105 102 ??CrCl?(CandG)?(ml/min) 149.92 150.12 ??AST/SGOT?(Unit/L) 13 12 ??ALT/SGPT?(Unit/L) <?7?L <?7?L ??ALKALINE?PHOSPHATASE?(Unit/L) 65 84 ??BILIRUBIN,?TOTAL?(mg/dL) 0.7 0.5 ??PROTEIN?TOTAL?(gm/dl) 7.3 7.0 ??ALBUMIN,?SERUM?(gm/dl) 4.5 4.5 ??GLOBULIN?(gm/dl) 2.8 2.5 ??ALBUMIN/GLOBULIN?RATIO 1.6 1.8 ??CALCIUM,?SERUM?(mg/dL) 9.9 9.4 ??CALCIUM?SERUM?(CORRECTED)?(mg/dL) 9.9 9.4 ??CEA?(O*)?(ng/ml) ? 1.6 ASSESSMENT/PLAN: 1) Colon cancer stage 3C t4b N2b M0 2) High risk features include T4b disease, neural vascular invasion and lymph nodes positive and involvement of the visceral p peritoneum. No perforation Patient is on FOLFOX and completed cycle 6 Continue current therapy Magic mouthwash as needed ORDERS: CBC CMP CEA ,naterra for baseline and further follow-up RETURN TO CLINIC: I will see him back in the clinic in 2 months. BILLING AND COMPLIANCE: I reviewed external records from providers outside my specialty as summarized above. I spent a total of 50 minutes on this patient?s care on the day of their visit excluding time spent related to any billed procedures. This time includes time spent with the patient as well as time spent documenting in the medical record, reviewing patients records and tests, obtaining history, placing orders, communicating with other healthcare professionals, counseling the patient, family or caregiver, and/or care coordination for the diagnoses above. Electronically Signed by: Dillon Capps MD T: 10:04 PM CC: PCP: Raj Puckett Referring: Raj Puckett This document was completed utilizing speech recognition software. Grammatical errors, random word insertions, pronoun errors, and incomplete sentences are an occasional consequence of this system due to software limitations, ambient noise, and hardware issues. Any formal questions or concerns about the content, text or information contained within the body of this dictation should be directly addressed to the provider for clarification.
[2024-12-14 09:45] LABS: Basophils % (Auto) 0 % (0-2.5); Eosinophils # (Auto) 0.1 Thou/mm3 (0.0-0.5); Eosinophils % (Auto) 1 % (0-10); Hematocrit 35.2 % (41.0-53.0); Hemoglobin 12.5 g/dL (13.5-16.0); Immature Granulocytes % (Auto) 0 % (0-0); Immature Granulocytes Auto 0.01 Thou/mm3 (0.00-0.00); Lymphocytes # (Auto) 1.7 Thou/mm3 (1.0-4.8); Lymphocytes % (Auto) 35 % (10-50); Mean Corpuscular HGB Conc 35.5 g/dl (31.0-37.0); Mean Corpuscular Hemoglobin 27.7 pg (25.0-35.0); Mean Corpuscular Volume 78 fL (80-100); Monocytes # (Auto) 0.5 Thou/mm3 (0.0-0.8); Monocytes % (Auto) 10 % (0-12); Neutrophils # (Auto) 2.7 Thou/mm3 (1.8-7.7); Neutrophils % (Auto) 54 % (37-80); Nucleated Red Blood Cell % 0 /100 WBC (0); Platelet Count 168 Thou/mm3 (140-440); RDW Standard Deviation 39.2 fL (35.1-43.9); Red Blood Count 4.52 Miln/mm3 (4.50-5.90); White Blood Count 4.9 Thou/mm3 (3.8-10.6)
[2024-12-14 10:25] LABS: Carcinoembryonic Antigen 1.7 ng/mL (0.0-5.0)
[2024-12-14 10:33] LABS: Alanine Aminotransferase 12 U/L (10-49); Albumin, Serum 4.6 gm/dL (3.5-5.0); Albumin/Globulin Ratio 1.8 (1.2-2.2); Alkaline Phosphatase 85 U/L (46-116); Anion Gap 10 (7-16); Aspartate Amino Transferase 18 U/L (0-34); BUN/Creatinine Ratio 20 Ratio (12-20); Bilirubin,Total 0.5 mg/dL (0.3-1.2); Blood Urea Nitrogen 12 mg/dL (9-23); Calcium 9.4 mg/dL (8.3-10.6); Calcium (Corrected) 9.4 mg/dL (8.5-10.1); Carbon Dioxide 24.4 mMol/L (20.0-31.0); Chloride 105 mMol/L (98-107); Creatinine (Component) 0.6 mg/dL (0.6-1.3); Globulin 2.6 gm/dL (2.3-3.5); Glucose 199 mg/dL (74-106); Osmolality,Calculated 283 (275-295); Potassium 3.8 mMol/L (3.4-5.1); Sodium 139 mMol/L (136-145); Total Protein 7.2 gm/dL (5.7-8.2); eGFR > 60 See Note
[2024-12-28 11:03] LABS: Basophils % (Auto) 0 % (0-2.5); Eosinophils % (Auto) 1 % (0-10); Hematocrit 34.9 % (41.0-53.0); Hemoglobin 12.4 g/dL (13.5-16.0); Immature Granulocytes % (Auto) 0 % (0-0); Immature Granulocytes Auto 0.01 Thou/mm3 (0.00-0.00); Lymphocytes # (Auto) 1.4 Thou/mm3 (1.0-4.8); Lymphocytes % (Auto) 30 % (10-50); Mean Corpuscular HGB Conc 35.5 g/dl (31.0-37.0); Mean Corpuscular Hemoglobin 27.7 pg (25.0-35.0); Mean Corpuscular Volume 78 fL (80-100); Monocytes # (Auto) 0.5 Thou/mm3 (0.0-0.8); Monocytes % (Auto) 10 % (0-12); Neutrophils # (Auto) 2.7 Thou/mm3 (1.8-7.7); Neutrophils % (Auto) 59 % (37-80); Nucleated Red Blood Cell % 0 /100 WBC (0); Platelet Count 122 Thou/mm3 (140-440); Red Blood Count 4.48 Miln/mm3 (4.50-5.90); White Blood Count 4.5 Thou/mm3 (3.8-10.6)
[2024-12-28 11:15] LABS: Alanine Aminotransferase 73 U/L (10-49); Albumin, Serum 4.6 gm/dL (3.5-5.0); Albumin/Globulin Ratio 1.6 (1.2-2.2); Alkaline Phosphatase 100 U/L (46-116); Anion Gap 12 (7-16); Aspartate Amino Transferase 82 U/L (0-34); BUN/Creatinine Ratio 23 Ratio (12-20); Bilirubin,Total 0.6 mg/dL (0.3-1.2); Blood Urea Nitrogen 14 mg/dL (9-23); Calcium 10.1 mg/dL (8.3-10.6); Calcium (Corrected) 10.1 mg/dL (8.5-10.1); Chloride 102 mMol/L (98-107); Creatinine (Component) 0.6 mg/dL (0.6-1.3); Globulin 2.8 gm/dL (2.3-3.5); Glucose 287 mg/dL (74-106); Osmolality,Calculated 284 (275-295); Potassium 3.8 mMol/L (3.4-5.1); Sodium 137 mMol/L (136-145); Total Protein 7.4 gm/dL (5.7-8.2); eGFR > 60 See Note
[2024-12-28 11:19] LABS: Carcinoembryonic Antigen 2.1 ng/mL (0.0-5.0)
== END 2025-01-04 23:59 | disposition home or self-care (01) ==
LOC: SCTC 08:54
PROVIDERS: PCP Student in an Organized Health Care Education/Training Program; Referring Provider Student in an Organized Health Care Education/Training Program; Visit Provider Internal Medicine Hematology & Oncology
DX: Z51.11 Encounter for antineoplastic chemotherapy (principal); C18.4 Malignant neoplasm of transverse colon; Z90.49 Acquired absence of other specified parts of digestive tract
CPT/HCPCS: 36591; 80053; 82378; 85025; 96366; 96367; 96368; 96411; 96413; 96415; 96416; 99213; A4216; J0640; J1100; J1453; J1642; J2405; J7050; J7060; J9190; J9263; G0463

== ENCOUNTER 2025-01-28 09:05 | Outpatient (RCR) | payer MEDICAID, SELFPAY ==
[2025-01-11 11:31] LABS: Basophils % (Auto) 0 % (0-2.5); Eosinophils # (Auto) 0.1 Thou/mm3 (0.0-0.5); Eosinophils % (Auto) 1 % (0-10); Hematocrit 35.9 % (41.0-53.0); Immature Granulocytes % (Auto) 0 % (0-0); Lymphocytes # (Auto) 1.5 Thou/mm3 (1.0-4.8); Lymphocytes % (Auto) 28 % (10-50); Mean Corpuscular HGB Conc 36.2 g/dl (31.0-37.0); Mean Corpuscular Volume 77 fL (80-100); Monocytes # (Auto) 0.5 Thou/mm3 (0.0-0.8); Monocytes % (Auto) 9 % (0-12); Neutrophils # (Auto) 3.2 Thou/mm3 (1.8-7.7); Neutrophils % (Auto) 62 % (37-80); Nucleated Red Blood Cell % 0 /100 WBC (0); Platelet Count 119 Thou/mm3 (140-440); RDW Standard Deviation 37.9 fL (35.1-43.9); Red Blood Count 4.65 Miln/mm3 (4.50-5.90); White Blood Count 5.2 Thou/mm3 (3.8-10.6)
[2025-01-11 11:45] LABS: Alanine Aminotransferase 75 U/L (10-49); Albumin, Serum 4.5 gm/dL (3.5-5.0); Albumin/Globulin Ratio 1.5 (1.2-2.2); Alkaline Phosphatase 105 U/L (46-116); Anion Gap 11 (7-16); Aspartate Amino Transferase 47 U/L (0-34); BUN/Creatinine Ratio 24 Ratio (12-20); Bilirubin,Total 0.7 mg/dL (0.3-1.2); Blood Urea Nitrogen 17 mg/dL (9-23); Calcium 9.9 mg/dL (8.3-10.6); Calcium (Corrected) 9.9 mg/dL (8.5-10.1); Carbon Dioxide 23.4 mMol/L (20.0-31.0); Chloride 101 mMol/L (98-107); Creatinine (Component) 0.7 mg/dL (0.6-1.3); Globulin 3.1 gm/dL (2.3-3.5); Glucose 309 mg/dL (74-106); Osmolality,Calculated 283 (275-295); Potassium 4.1 mMol/L (3.4-5.1); Sodium 135 mMol/L (136-145); Total Protein 7.6 gm/dL (5.7-8.2); eGFR > 60 See Note
[2025-01-11 12:29] LABS: Carcinoembryonic Antigen 2.4 ng/mL (0.0-5.0)
[2025-01-25 09:04] LABS: Basophils % (Auto) 0 % (0-2.5); Eosinophils % (Auto) 1 % (0-10); Hemoglobin 12.5 g/dL (13.5-16.0); Immature Granulocytes % (Auto) 0 % (0-0); Lymphocytes # (Auto) 1.3 Thou/mm3 (1.0-4.8); Lymphocytes % (Auto) 31 % (10-50); Mean Corpuscular HGB Conc 35.7 g/dl (31.0-37.0); Mean Corpuscular Hemoglobin 27.2 pg (25.0-35.0); Mean Corpuscular Volume 76 fL (80-100); Monocytes # (Auto) 0.4 Thou/mm3 (0.0-0.8); Monocytes % (Auto) 10 % (0-12); Neutrophils # (Auto) 2.5 Thou/mm3 (1.8-7.7); Neutrophils % (Auto) 58 % (37-80); Nucleated Red Blood Cell % 0 /100 WBC (0); Platelet Count 124 Thou/mm3 (140-440); RDW Standard Deviation 36.3 fL (35.1-43.9); Red Blood Count 4.59 Miln/mm3 (4.50-5.90); White Blood Count 4.3 Thou/mm3 (3.8-10.6)
[2025-01-25 09:22] LABS: Alanine Aminotransferase 64 U/L (10-49); Albumin, Serum 4.2 gm/dL (3.5-5.0); Albumin/Globulin Ratio 1.4 (1.2-2.2); Alkaline Phosphatase 114 U/L (46-116); Anion Gap 8 (7-16); Aspartate Amino Transferase 45 U/L (0-34); BUN/Creatinine Ratio 18 Ratio (12-20); Bilirubin,Total 0.6 mg/dL (0.3-1.2); Blood Urea Nitrogen 11 mg/dL (9-23); Calcium 9.2 mg/dL (8.3-10.6); Calcium (Corrected) 9.2 mg/dL (8.5-10.1); Carbon Dioxide 25.4 mMol/L (20.0-31.0); Chloride 103 mMol/L (98-107); Creatinine (Component) 0.6 mg/dL (0.6-1.3); Glucose 337 mg/dL (74-106); Osmolality,Calculated 284 (275-295); Potassium 3.9 mMol/L (3.4-5.1); Sodium 136 mMol/L (136-145); Total Protein 7.2 gm/dL (5.7-8.2); eGFR > 60 See Note
[2025-01-25 09:24] LABS: Carcinoembryonic Antigen 2.4 ng/mL (0.0-5.0)
== END 2025-02-03 23:59 | disposition home or self-care (01) ==
LOC: SCTC 09:05
PROVIDERS: PCP Student in an Organized Health Care Education/Training Program; Referring Provider Student in an Organized Health Care Education/Training Program; Visit Provider Internal Medicine Hematology & Oncology
DX: Z51.11 Encounter for antineoplastic chemotherapy (principal); C18.4 Malignant neoplasm of transverse colon; Z90.49 Acquired absence of other specified parts of digestive tract
CPT/HCPCS: 36591; 80053; 82378; 85025; 96366; 96367; 96368; 96411; 96413; 96415; 96416; A4216; J0640; J1100; J1453; J1642; J2405; J7050; J9190; J9263

== ENCOUNTER 2025-01-28 09:43 | Outpatient (AMB) | payer MEDICAID, SELFPAY ==
[2025-01-28 09:52] VITALS: BP 123/79; PULSE 96; RESP 18; TEMP 36.8; O2SAT 98; BMI 21.4
--- NOTE | 2025-01-28 09:52 | PD.RESCLINIC ---
Vital Signs 01/28/25 09:52 Height 1.75 m Height Method Stated Weight 65.884 kg BMI 21.4 BP 123/79 Blood Pressure Source Automatic Cuff Blood Pressure Location Right Upper Arm Position Sitting Respiration 18 Pulse 96 Pulse Source Monitor Temp 98.3 F Temp Source Temporal Artery Scan Pulse Oximetry (%) 98 Oxygen Delivery Method Room Air Allergies/Meds Allergies & Medications Allergies No Known Allergies Allergy (Verified 01/28/25 09:53) Medication Reconciliation gabapentin 100 mg capsule 200 mg PO BID PRN pain 08/25/24 [History Confirmed 01/28/25] simethicone 80 mg chewable tablet 80 mg PO TID PRN abdominal distention #90 tabs 08/26/24 [Rx Confirmed 01/28/25] insulin glargine 100 unit/mL (3 mL) subcutaneous pen (Lantus Solostar U-100 Insulin) 10 unit (0.1 mL) subcut QPM #15 mL 10/29/24 [Rx Confirmed 01/28/25] lancets 23 gauge (Acti-Kavon Lancets) #100 ea 11/13/24 [Rx Confirmed 01/28/25] dapagliflozin propanediol 5 mg tablet (Farxiga) 5 mg PO QAM #30 tabs 01/28/25 [Rx] lisinopril 5 mg tablet 5 mg PO QDAY #30 tabs 01/28/25 [Rx] metformin 1,000 mg tablet 1,000 mg PO BIDWMEAL #60 tabs 01/28/25 [Rx] pen needle, diabetic 29 gauge x 1/2 (Comfort EZ Pen [place]) #100 ea 01/28/25 [Rx] MA Intake Visit Data Collection New Patient or Established: Established Patient (seen at [facility] within 3 years) Seen by Clinical Staff ONLY (RN/MA): No Pain Present Currently: No Pain scale:: 0 Pain Scale Used: MorfinYulia/Numerical Brush Holder Assembler Required: Yes PCP or OBGYN visit in last 3 months: Yes Hx Now: No Do You Feel Safe at Home: Yes Authorities Contacted: N/A Smoking Status Smoking Status: Never smoker Immunization / Flu Flu Vaccine in the Last 12 Months: No Flu Vaccine Exclusion Criteria: No Exclusion Criteria Past Medical History Past Medical History NEUROLOGIC: Negative Neurological Disorders or Seizures CARDIAC: Positive Cardiac Disorders and Hypertension; Negative Congestive Heart Failure RESPIRATORY: Negative Chronic Obstructive Pulmonary Disease (COPD) or Asthma GASTROINTESTINAL: Positive Colorectal Cancer (July 2024); Negative Gastrointestinal Disorders (Constipation) or Hepatitis GENITOURINARY: Negative Genitourinary Disorders or Renal Disease ENDOCRINE: Positive Endocrine Disorders and Diabetes Mellitus Type 2; Negative Diabetes Mellitus Type 1 HEMATOLOGIC: Positive Blood Disorders and Anemia; Negative Sickle Cell Disease OTHER HISTORY: Positive Hospitalization (colon resection), Chicken Pox, Measles, Cancer and Colorectal Cancer (July 2024); Negative Shingles, Blood Transfusions, Blood Transfusion Reaction or Anesthesia Reactions Family History FAMILY HISTORY: Positive Family Surgery; Negative Family Psychiatric Problems, Family Respiratory Disorders, Family Cardiac Disorders, Family Gastrointestinal Problems, Family Cancer or Family Anesthesia Reaction Surgical History SURGICAL: Positive Bowel Surgery (Bowel resection) Social History SMOKING STATUS: Smoking status: Never smoker ALCOHOL: Alcohol Intake: Former HOUSING: Housing: Apartment LIVES WITH: Lives With: Spouse Patient Efren Marydamaris Social History Living Situation History Housing: Apartment Tobacco History Smoking Status: Never smoker Alcohol History Alcohol Intake: Former Domestic Abuse History Do You Feel Safe at Home: Yes Review of Systems Report any current symptoms Only answer those that you have currently: Past Medical History Past Medical History Have you ever been diagnosed with any of the following: Neurological Problems Seizures: No Cardiology Problems Congestive Heart Failure: No Hypertension: Yes Respiratory Problems Chronic Obstructive Pulmonary Disease (COPD): No Asthma: No Stomache/Intestinal Problems Hepatitis: No Colorectal Cancer: Yes (July 2024) Genital/Urinary Problems Renal Disease: No Endocrine Problems Diabetes Mellitus Type 1: No Diabetes Mellitus Type 2: Yes Blood Problems Anemia: Yes Sickle Cell Disease: No Other Problems Hospitalization: Yes (colon resection) Shingles: No Blood Transfusions: No Blood Transfusion Reaction: No Anesthesia Reactions: No Chicken Pox: Yes Measles: Yes Cancer: Yes History of Present Illness HPI Narrative Patient is a 43 yo male with recently diagnosed invasive adenocarcinoma s/p segment colectomy with colo-colo anastamosis and newly diagnosed diabetes mellitus that presented to [facility] for medication refill and follow-up. Patient on chemotherapy with FOLFOX AJDUVANT. Patient is tolerating chemo well and denies any decreased appetite. Patient is otherwise doing well and is tolerating medications. Sugars noted to be at 337 during last lab, and A1c is at 8.4 which improved from 10.1 in July last year. Will obtain A1c and microalbumin with a follow up appointment in 3 weeks regarding A1c results.. Patient denying any shortness of breath, chest pain, nausea, vomiting, fever, chills, abdominal pain, or melena/hematochezia. Appetite is well and patient is tolerating medication as well. Objective/Exam Narrative Physical exam: Gen: Well-developed, alert and oriented x 3, In good spirits. CVS: Regular rate and rhythm. No M/R/G. Resp: CTA B/L. No rhonchi, rales, crackles or wheezing. Abd: soft, non-distended. Nontender. Active bowel sounds. Non tender. MSK: Good ROM in BUE & BLE. No edema or rash. Psych: appropriate mood and affect. Assessment & Plan Diagnosis / Problem List (1) Adenocarcinoma: Status: Acute Assessment & Plan: Patient with recent invasive adenocarcinoma of the colon diagnosis status post colon resection with colon to colon anastomosis. Biopsy results show pT4a N2b well-differentiated invasive adenocarcinoma with 8 out of 19 lymph nodes positive for malignancy. Patient on chemotherapy with FOLFOX AJDUVANT Patient to continue management at cancer center Plan: F/u with cancer center. Continue with pain medication as needed. (2) Diabetes mellitus, insulin dependent (IDDM), uncontrolled: Status: Acute Assessment & Plan: October A1c at 8.4 with proteinurea noted. Plan: Patient on Lantus 10 units daily Increased metformin to 1000mg BID Started patient on farxiga 5mg Ordered A1c and microalbumin, will adjust medications pending results. Referral for podiatry and ophthalmology pending, follow-up with both. (3) Hypertension associated with diabetes: Status: Acute Assessment & Plan: Stable Plan: Continue on lisinopril 5 mg daily Plan Patient will continue with chemo and follow-up at cancer center. Patient to continue with insulin and metformin, and start farxiga. Will follow-up on A1c and microalbumin and adjust medication pending results. Follow-up with podiatry and ophthalmology. Will see in office again in 3 weeks. Orders: Orders Ambulatory Hemoglobin A1C 01/28/25 E11.29 - Type 2 diabetes mellitus with other diabetic kidney complication, E11.59 - Type 2 diabetes mellitus with other circulatory complications, E11.9 - Type 2 diabetes mellitus without complications, I15.2 - Hypertension secondary to endocrine disorders, R80.9 - Proteinuria, unspecified, Z79.4 - watermaster (current) use of insulin Microalbumin, Ur Rnd w Creat 01/28/25 E11.29 - Type 2 diabetes mellitus with other diabetic kidney complication, E11.59 - Type 2 diabetes mellitus with other circulatory complications, E11.9 - Type 2 diabetes mellitus without complications, I15.2 - Hypertension secondary to endocrine disorders, R80.9 - Proteinuria, unspecified, Z79.4 - long-term (current) use of insulin Additional Assessment Internal Medicine Attending Note: Case discussed with and agree with note and management plan of Resident Physician as per Resident's Note above. Issues of concern for present visit are as follows: Follow-up visit. History of invasive adenocarcinoma of the colon status post segmental colectomy with [place] anastomosis. Tolerating chemotherapy with FOLFOX adjuvant regimen. Diabetes self-care reviewed including diet, exercise, footcare, eye care. Hemoglobin A1c had decreased to 8.4 on most recent labs down from 10.1 in prior year. Recheck hemoglobin A1c at this visit along with microalbumin creatinine ratio. Continue Lantus insulin. We will increase the metformin to 1000 mg twice daily and start Farxiga 5 mg daily. Has referrals for podiatry for footcare and ophthalmology for eye evaluation. Patient is on SUSAN inhibitor, blood pressure in good range at 123/79. Follow-up visit once labs completed for review. Vamsi Landaverde MD Physician Billing Established Patient Established Patient: E/M Level 3-CPT 60504 Office Procedures [facility] Level of Care Nursing/Assessment Patient Status: Established Patient Nursing Assessment/Reassessment: Medication Reconciliation, Update PMH in EMR and Vital Signs Coordination of Care: Complex Care and Chronic Disease 1-5, Consent,records obtained, informed consent, Education Simp Pt/Fam, Lab and Imaging orders and Staff clarify orders Established Patient Charge Established Patient Point Assignment: 100 Established Patient Point Charge: EP Level 3 (80-115)
== END 2025-01-28 10:40 | disposition home or self-care (01) ==
LOC: HODAHC 09:43
PROVIDERS: PCP Student in an Organized Health Care Education/Training Program; Referring Provider Student in an Organized Health Care Education/Training Program; Supervising Provider Internal Medicine; Visit Provider Student in an Organized Health Care Education/Training Program
DX: C18.9 Malignant neoplasm of colon, unspecified (principal); E11.9 Type 2 diabetes mellitus without complications; Z79.4 Long term (current) use of insulin; Z79.84 Long term (current) use of oral hypoglycemic drugs; I15.2 Hypertension secondary to endocrine disorders
CPT/HCPCS: 99213; G0463

== ENCOUNTER 2025-02-18 10:01 | Outpatient (AMB) | payer MEDICAID, SELFPAY ==
--- NOTE | 2025-02-18 10:29 | ACNOTE_ITS ---
Vital Signs 02/18/25 10:30 Weight 66.338 kg Weight Measurement Method Standing Scale BP 134/88 H Blood Pressure Source Automatic Cuff Blood Pressure Location Right Upper Arm Position Sitting Respiration 18 Pulse 105 H Pulse Source Monitor Temp 98.1 F Temp Source Temporal Artery Scan Pulse Oximetry (%) 98 Oxygen Delivery Method Room Air Allergies/Meds Allergies & Medications Allergies No Known Allergies Allergy (Verified 02/22/25 09:00) MA Intake Visit Data Collection New Patient or Established: Established Patient (seen at [facility] within 3 years) Seen by Clinical Staff ONLY (RN/MA): No Pain Present Currently: No Pain scale:: 0 Pain Scale Used: Morfin-Jimenes/Numerical Fork Operator Required: No PCP or OBGYN visit in last 3 months: Yes Hx Now: No Do You Feel Safe at Home: Yes Authorities Contacted: N/A Smoking Status Smoking Status: Never smoker Immunization / Flu Flu Vaccine in the Last 12 Months: No Flu Vaccine Exclusion Criteria: No Exclusion Criteria Past Medical History Past Medical History NEUROLOGIC: Negative Neurological Disorders or Seizures CARDIAC: Positive Cardiac Disorders and Hypertension; Negative Congestive Heart Failure RESPIRATORY: Negative Chronic Obstructive Pulmonary Disease (COPD) or Asthma GASTROINTESTINAL: Positive Colorectal Cancer (July 2024); Negative Gastrointestinal Disorders (Constipation) or Hepatitis GENITOURINARY: Negative Genitourinary Disorders or Renal Disease ENDOCRINE: Positive Endocrine Disorders and Diabetes Mellitus Type 2; Negative Diabetes Mellitus Type 1 HEMATOLOGIC: Positive Blood Disorders and Anemia; Negative Sickle Cell Disease OTHER HISTORY: Positive Hospitalization (colon resection), Chicken Pox, Measles, Cancer and Colorectal Cancer (July 2024); Negative Shingles, Blood Transfusions, Blood Transfusion Reaction or Anesthesia Reactions Family History FAMILY HISTORY: Positive Family Surgery; Negative Family Psychiatric Problems, Family Respiratory Disorders, Family Cardiac Disorders, Family Gastrointestinal Problems, Family Cancer or Family Anesthesia Reaction Surgical History SURGICAL: Positive Bowel Surgery (Bowel resection) Social History SMOKING STATUS: Smoking status: Never smoker ALCOHOL: Alcohol Intake: Former HOUSING: Housing: Apartment LIVES WITH: Lives With: Spouse Patient Portal Shaan Social History Living Situation History Housing: Apartment Tobacco History Smoking Status: Never smoker Alcohol History Alcohol Intake: Former Domestic Abuse History Do You Feel Safe at Home: Yes Review of Systems Report any current symptoms Only answer those that you have currently: Past Medical History Past Medical History Have you ever been diagnosed with any of the following: Neurological Problems Seizures: No Cardiology Problems Congestive Heart Failure: No Hypertension: Yes Respiratory Problems Chronic Obstructive Pulmonary Disease (COPD): No Asthma: No Stomache/Intestinal Problems Hepatitis: No Colorectal Cancer: Yes (July 2024) Genital/Urinary Problems Renal Disease: No Endocrine Problems Diabetes Mellitus Type 1: No Diabetes Mellitus Type 2: Yes Blood Problems Anemia: Yes Sickle Cell Disease: No Other Problems Hospitalization: Yes (colon resection) Shingles: No Blood Transfusions: No Blood Transfusion Reaction: No Anesthesia Reactions: No Chicken Pox: Yes Measles: Yes Cancer: Yes History of Present Illness HPI Narrative Patient is a 44 yo male with recently diagnosed invasive adenocarcinoma s/p segment colectomy with colo-colo anastamosis and newly diagnosed diabetes mellitus that presented to [facility] for medication refill and follow-up. Patient on chemotherapy with FOLFOX AJDUVANT and has one more dose to complete chemo. Patient is pending PET scan to rule out any mets after completing chemo. Patient also has a follow up appointment with Dr. Martinez. Patient states he is tolerating medications well and appetite is well. Patient denying any shortness of breath, chest pain, nausea, vomiting, fever, chills, abdominal pain, or melena/hematochezia or dysurea. Appetite is well and patient is tolerating medication as well. Objective/Exam Narrative Physical exam: Gen: Well-developed, alert and oriented x 3, In good spirits. CVS: Regular rate and rhythm. No M/R/G. Resp: CTA B/L. No rhonchi, rales, crackles or wheezing. Abd: soft, non-distended. Nontender. Active bowel sounds. Non tender. MSK: Good ROM in BUE & BLE. No edema or rash. Psych: appropriate mood and affect. Assessment & Plan Diagnosis / Problem List (1) Adenocarcinoma: Status: Acute Assessment & Plan: Patient with recent invasive adenocarcinoma of the colon diagnosis status post colon resection with colon to colon anastomosis. Biopsy results show pT4a N2b well-differentiated invasive adenocarcinoma with 8 out of 19 lymph nodes positive for malignancy. Patient on chemotherapy with FOLFOX AJDUVANT, needs one more session. Patient to continue management at cancer center Will f/u with Dr. Martinez regarding repeat colonoscopy. Plan: F/u with cancer center. Continue with pain medication as needed. (2) Diabetes mellitus, insulin dependent (IDDM), uncontrolled: Status: Acute Assessment & Plan: October A1c at 8.4 with proteinurea noted. Most recent A1c 8.6. Plan: Will increase to Lantus 15 units daily Continue metformin to 1000mg BID Continue patient on farxiga 5mg Will order A1c and microalbumin/ creatinine ratio next visit. Referral for podiatry and ophthalmology pending, follow-up with both. (3) Hypertension associated with diabetes: Status: Acute Assessment & Plan: Stable Plan: Continue on lisinopril 5 mg daily Plan Patient will continue with chemo and follow-up at cancer center. Patient to continue with insulin and metformin, and farxiga. Will follow-up on A1c and microalbumin and adjust medication pending results. Follow-up with podiatry and ophthalmology. Will see in office again in 3 months. Office Procedures [facility] Level of Care Nursing/Assessment Patient Status: Established Patient Nursing Assessment/Reassessment: Medication Reconciliation, Update PMH in EMR and Vital Signs Coordination of Care: Complex Care and Chronic Disease 1-5, Consent,records obtained, informed consent, Education Simp Pt/Fam and Staff clarify orders Established Patient Charge Established Patient Point Assignment: 85 Established Patient Point Charge: EP Level 3 (80-115)
[2025-02-18 10:30] VITALS: BP 134/88; PULSE 105; RESP 18; TEMP 36.7; O2SAT 98
== END 2025-02-18 11:45 | disposition home or self-care (01) ==
LOC: HODAHC 10:01
PROVIDERS: Supervising Provider Internal Medicine; Visit Provider Student in an Organized Health Care Education/Training Program
DX: C18.9 Malignant neoplasm of colon, unspecified (principal); E11.9 Type 2 diabetes mellitus without complications; Z79.4 Long term (current) use of insulin; Z79.84 Long term (current) use of oral hypoglycemic drugs; I15.2 Hypertension secondary to endocrine disorders
CPT/HCPCS: 99213; G0463

== ENCOUNTER 2025-02-22 08:40 | Outpatient (AMB) | payer MEDICAID, SELFPAY ==
--- NOTE | 2025-02-22 08:53 | GSCOFFNT_ITS ---
Vital Signs - [facility] 02/22/25 08:59 Height 1.75 m Height Method Stated Weight 65.856 kg Weight Measurement Method Standing Scale BMI 21.4 BP 117/82 Blood Pressure Source Automatic Cuff Blood Pressure Location Left Upper Arm Position Sitting Respiration 18 Pulse 103 H Pulse Source Monitor Temp 98.1 F Temp Source Temporal Artery Scan Pulse Oximetry (%) 98 Oxygen Delivery Method Room Air Med/Allergies Allergies & Medications Allergies No Known Allergies Allergy (Verified 02/22/25 09:00) Medication Reconciliation gabapentin 100 mg capsule 200 mg PO BID PRN pain 08/25/24 [History Confirmed 02/22/25] simethicone 80 mg chewable tablet 80 mg PO TID PRN abdominal distention #90 tabs 08/26/24 [Rx Confirmed 02/22/25] dapagliflozin propanediol 5 mg tablet (Farxiga) 5 mg PO QAM #30 tabs 01/28/25 [Rx Confirmed 02/22/25] lisinopril 5 mg tablet 5 mg PO QDAY #30 tabs 01/28/25 [Rx Confirmed 02/22/25] metformin 1,000 mg tablet 1,000 mg PO BIDWMEAL #60 tabs 01/28/25 [Rx Confirmed 02/22/25] insulin glargine 100 unit/mL (3 mL) subcutaneous pen (Lantus Solostar U-100 Insulin) 15 unit (0.15 mL) subcut QPM #15 mL 02/18/25 [Rx Confirmed 02/22/25] lancets 23 gauge (Acti-Kavon Lancets) #100 ea 02/18/25 [Rx Confirmed 02/22/25] pen needle, diabetic 29 gauge x 1/2 (Comfort EZ Pen Raven) #100 ea 02/18/25 [Rx Confirmed 02/22/25] MA Intake Visit Data Collection New Patient or Established: Established Patient (seen at [facility] within 3 years) Seen by Clinical Staff ONLY (RN/MA): No Reason for Visit:: FOLLOW UP Pain Present Currently: No Security Systems Sales Representative Required: Yes PCP or OBGYN visit in last 3 months: Yes Hx Now: No Do You Feel Safe at Home: Yes Authorities Contacted: N/A Smoking Status Smoking Status: Never smoker Immunization / Flu Flu Vaccine in the Last 12 Months: No Flu Vaccine Exclusion Criteria: No Exclusion Criteria Past Medical History Past Medical History NEUROLOGIC: Negative Neurological Disorders or Seizures CARDIAC: Positive Cardiac Disorders and Hypertension; Negative Congestive Heart Failure RESPIRATORY: Negative Chronic Obstructive Pulmonary Disease (COPD) or Asthma GASTROINTESTINAL: Positive Colorectal Cancer (July 2024); Negative Gastrointestinal Disorders (Constipation) or Hepatitis GENITOURINARY: Negative Genitourinary Disorders or Renal Disease ENDOCRINE: Positive Endocrine Disorders and Diabetes Mellitus Type 2; Negative Diabetes Mellitus Type 1 HEMATOLOGIC: Positive Blood Disorders and Anemia; Negative Sickle Cell Disease OTHER HISTORY: Positive Hospitalization (colon resection), Chicken Pox, Measles, Cancer and Colorectal Cancer (July 2024); Negative Shingles, Blood Transfusions, Blood Transfusion Reaction or Anesthesia Reactions Family History FAMILY HISTORY: Positive Family Surgery; Negative Family Psychiatric Problems, Family Respiratory Disorders, Family Cardiac Disorders, Family Gastrointestinal Problems, Family Cancer or Family Anesthesia Reaction Surgical History SURGICAL: Positive Bowel Surgery (Bowel resection) Social History SMOKING STATUS: Smoking status: Never smoker ALCOHOL: Alcohol Intake: Former HOUSING: Housing: Apartment LIVES WITH: Lives With: Spouse HPI HPI Narrative 44 year old male with stage 3 colon adenocarcinoma s/p segmental colectomy with colo-colo anastamosis here for follow up. Patient had presented with signs and symptoms of SBO, findings of obstructing colon mass s/p laparotomy, segmental colectomy and colo-colo anastomosis 07/30. Patient reports feeling well with no pain, no nausea, and is eating well. He has been having regular daily BMs with soft stool. Patient is on chemotherapy with Folfox, and has one more dose before completing chemotherapy (scheduled for February 23). Patient is pending PET scan to rule out any mets after completing chemo as post chemotherapy baseline. He reported no new symptoms or concerns. Denies shortness of breath, chest pain, nausea, vomiting, fever, chills, abdominal pain, blood in the stool. ROS Review of Systems Systems Reviewed: All systems reviewed, normal except as documented Objective/Exam General General Appearance: alert, comfortable and cooperative Resp Respiratory exam: Absent respiratory distress Abdominal Abdominal exam: Present soft and incision (well healed midline incision with no erythema, no fluctuance or tenderness); Absent distention or tenderness Assessment & Plan Diagnosis / Problem List (1) Colorectal cancer, stage III: Status: Acute Assessment & Plan: 44 year old male presenting for follow up. Patient had presented with signs and symptoms of SBO, findings of obstructing colon mass s/p laparotomy, segmental colectomy and colo-colo anastomosis 07/30, with pathology showing [id number] invasive adenocarcinoma with signet ring features. Patient is on adjuvant chemotherapy with one more dose of chemotherapy remaining this week before completion of chemotherapy. Patient reports that he is doing well. Patient to return to clinic in 3 months for follow up, at which time colonoscopy will be scheduled. Office Procedures [facility] Level of Care Nursing/Assessment Patient Status: Established Patient Nursing Assessment/Reassesment: Medication Reconciliation, Update PMH in EMR and Vital Signs Coordination of Care: Complex Care and Chronic Disease 1-5, Consent,records obtained, informed consent, Education Simp Pt/Fam, Results/Orders obtained and Staff clarify orders Special Needs: Language special needs Established Patient Charge Established Patient Point Assignment: 90 Established Patient Point Charge: EP Level 3 (80-115) Patient Portal Questionaires Social History Living Situation History Housing: Apartment Tobacco History Smoking Status: Never smoker Alcohol History Alcohol Intake: Former Domestic Abuse History Do You Feel Safe at Home: Yes Review of Systems Report any current symptoms Only answer those that you have currently: Past Medical History Past Medical History Have you ever been diagnosed with any of the following: Neurological Problems Seizures: No Cardiology Problems Congestive Heart Failure: No Hypertension: Yes Respiratory Problems Chronic Obstructive Pulmonary Disease (COPD): No Asthma: No Stomache/Intestinal Problems Hepatitis: No Colorectal Cancer: Yes (July 2024) Genital/Urinary Problems Renal Disease: No Endocrine Problems Diabetes Mellitus Type 1: No Diabetes Mellitus Type 2: Yes Blood Problems Anemia: Yes Sickle Cell Disease: No Other Problems Hospitalization: Yes (colon resection) Shingles: No Blood Transfusions: No Blood Transfusion Reaction: No Anesthesia Reactions: No Chicken Pox: Yes Measles: Yes Cancer: Yes
[2025-02-22 08:59] VITALS: BP 117/82; PULSE 103; RESP 18; TEMP 36.7; O2SAT 98; BMI 21.4
== END 2025-02-22 09:38 | disposition home or self-care (01) ==
LOC: HODSRG 08:40
PROVIDERS: Supervising Provider Surgery; Visit Provider Surgery
DX: C19 Malignant neoplasm of rectosigmoid junction (principal)
CPT/HCPCS: 99213; G0463

== ENCOUNTER 2025-02-25 09:44 | Outpatient (RCR) | payer MEDICAID, SELFPAY ==
--- NOTE | 2025-02-08 05:47 | CTCFLWUP_ITS ---
Patient: RAY PULIDO : 1980 Page 3 of 4 FOLLOW UP NOTE DATE OF SERVICE: 02/04/2025 NAME: RAY PULIDO ACCOUNT: [id number] : 1980 AGE: 44 INTERVAL HISTORY: Summary Ray, a male with stage 3 colon cancer, presented for follow-up after completing 10 of 12 planned Folfax chemotherapy treatments. Recent cancer marker blood tests were negative. He reported no new symptoms or concerns. Plan includes completing final two chemotherapy treatments (last one scheduled for February 23), CAT scan in March as post-chemotherapy baseline, continued home blood tests for cancer markers, colonoscopy with Dr. Lu on February 22, and follow-up appointment in . Chief Complaint Follow-up for colon cancer treatment History of Present Illness Ray is a Bolivian-speaking patient with a history of stage 3 colon cancer who presents for follow-up after completing chemotherapy treatment. He has completed 10 out of 12 planned Folfax chemotherapy treatments for his colon cancer. The patient reports no new symptoms or concerns during this visit. He has been adherent to his treatment regimen, having completed the prescribed chemotherapy sessions as scheduled. Ray's overall health status appears to have improved, as recent blood tests for cancer markers have come back negative, indicating no detectable cancer in his body. Ray is scheduled for his final two chemotherapy treatments, with the last one planned for February 23. He also mentions having an upcoming appointment with Dr. Richa Lu, who previously performed his colonoscopy, on February 22. Medical History - Stage 3 colon cancer, treated with chemotherapy Surgical History - Colon cancer surgery (specific procedure not mentioned) Medications and Supplements - Folfax Chemotherapy - Completed 10 treatments out of 12 total planned Social History - Language: Bolivian-speaking, requires american sign language interpreter Patient is on adjuvant FOLFOX and doing well. Patient have completed 6 cycles of chemotherapy with FOLFOX. ONCOLOGY HISTORY: DIAGNOSIS: Malignant neoplasm of colon, unspecified [ICD10] C18.9 DATE OF DIAGNOSIS: 07/29/2024 STAGE/TNM: IIIC T4a N2b M0 TREATMENT HISTORY: Care?Plan Start?Date Cycle Day Intent mFOLFOX-6?-?5FU?400?+?2400?CIV,?LVR?400,OXALIplat?85 09/22/2024 1 14 Curative?(adjuvant) HISTORY OF PRESENT ILLNESS: 44 yr old with new diagnosis of colon cancer. His baseline weight is 185 and lost weight to 142 pounds. He have healed well. Surgery was in July 2024. He does not have colostomy bag . 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 insulin glargine - 100 unit/mL 10 Units As directed 2. lisinopril - 5 mg 1 tab Daily 3. metFORMIN - 500 mg 1 tab Twice a Day Medications Last Reconciled by Riddhi Evans MA on 02/04/2025 ALLERGIES: No Known Allergies REVIEW OF SYSTEMS: A complete 14-point review of systems was performed and is negative except as noted in interval history. PHYSICAL EXAMINATION: VITAL SIGNS: Temperature?97.1, B/P?153/97, Oxygen?Saturation?99% Weight?147?lbs (Change?since?01/28/25:?-0.4?lbs) PAIN: 0 - No pain ECOG Performance Status: 0 - Asymptomatic and fully active GENERAL APPEARANCE: Appears well, in no apparent distress, appropriately interactive. HEENT: Normocephalic, no temporal wasting, normal conjunctiva, no scleral icterus, normal hearing, lips without lesions, neck normal range of motion. CARDIOVASCULAR: Not assessed. PULMONARY: Normal respiratory effort, no respiratory distress or use of accessory muscles, speaking in full sentences, no tachypnea. EXTREMITIES: No pedal edema or cyanosis. SKIN: Normal skin appearance. NEUROLOGIC: Alert and oriented x4. PSHYCHIATRIC: Appropriate affect, mood normal, behavior normal, intact thought and speech. LABORATORY DATA: I have personally reviewed and interpreted each of the patient?s relevant lab tests, abnormal findings are below: Date 01/11/25 01/25/25 ??WHITE?BLOOD?COUNT?(Thou/mm3) 5.2 4.3 ??RED?BLOOD?COUNT?(Miln/mm3) 4.65 4.59 ??HEMOGLOBIN?(gm/dl) 13.0?L 12.5?L ??HEMATOCRIT?(%) 35.9?L 35.0?L ??PLATELET?COUNT?(Thou/mm3) 119?L 124?L ??NEUTROPHILS?%,?AUTO?(%) 62 58 ??LYMPH?%,?AUTO?(%) 28 31 ??NEUTROPHILS,?AUTO?(Thou/mm3) 3.2 2.5 ??GLUCOSE,RANDOM?(mg/dL) ? 337?H ??BLOOD?UREA?NITROGEN?(mg/dL) ? 11 ??CREATININE?(mg/dL) ? 0.60 ??SODIUM?(mmol/L) ? 136 ??POTASSIUM?(mmol/L) ? 3.9 ??CHLORIDE?(mmol/L) ? 103 ??CrCl?(CandG)?(ml/min) ? 149.31 ??AST/SGOT?(Unit/L) ? 45?H ??ALT/SGPT?(Unit/L) ? 64?H ??ALKALINE?PHOSPHATASE?(Unit/L) ? 114 ??BILIRUBIN,?TOTAL?(mg/dL) ? 0.6 ??PROTEIN?TOTAL?(gm/dl) ? 7.2 ??ALBUMIN,?SERUM?(gm/dl) ? 4.2 ??GLOBULIN?(gm/dl) ? 3.0 ??ALBUMIN/GLOBULIN?RATIO ? 1.4 ??CALCIUM,?SERUM?(mg/dL) ? 9.2 ??CALCIUM?SERUM?(CORRECTED)?(mg/dL) ? 9.2 ??CEA?(O*)?(ng/ml) ? 2.4 Laboratory, Imaging, and Diagnostic Test Results - Blood test for cancer (CEA 2620, 2500 Cy testing for colon cancer): Negative ASSESSMENT/PLAN: 1) Colon cancer stage 3C t4b N2b M0 2) High risk features include T4b disease, neural vascular invasion and lymph nodes positive and involvement of the visceral p peritoneum. No perforation Ray, male patient with history of stage 3 colon cancer, completed 10 out of 12 planned Folfax chemotherapy treatments. Stage 3 Colon Cancer Assessment: Patient has completed 10 out of 12 planned Folfox chemotherapy treatments for stage 3 colon cancer. Recent blood tests for cancer markers were negative, indicating no detectable cancer in the body. This suggests a positive response to the current treatment regimen. Plan: - Complete remaining 2 Folfox chemotherapy treatments - Last treatment scheduled for February 23, 2025 - Order CAT scan in March 2025 as baseline imaging post-chemotherapy - Continue home blood tests for cancer markers - Patient to monitor results and report immediately if positive - Follow-up appointment scheduled for April or May 2025 - Referral to GI specialist (Dr. Richa Lu) for colonoscopy - Patient reports existing appointment on February 22, 2025 ORDERS: Order # Description [id number] CBC + Comprehensive Metabolic Panel + CEA [id number] Lab Appointment RETURN TO CLINIC: BILLING AND COMPLIANCE: I reviewed external records from providers outside my specialty as summarized above. I spent a total of 50 minutes on this patient?s care on the day of their visit excluding time spent related to any billed procedures. This time includes time spent with the patient as well as time spent documenting in the medical record, reviewing patients records and tests, obtaining history, placing orders, communicating with other healthcare professionals, counseling the patient, family or caregiver, and/or care coordination for the diagnoses above. Electronically Signed by: {Object.Sanct_ID*PnP.NameFL@M}, {Object.Sanct_ID*PnP.Suffix@U} D: {Object.Sanct_Date} T: {Object.Sanct_Time} CC: PCP: Lance Ibanez Referring: Raj Puckett This document was completed utilizing speech recognition software. Grammatical errors, random word insertions, pronoun errors, and incomplete sentences are an occasional consequence of this system due to software limitations, ambient noise, and hardware issues. Any formal questions or concerns about the content, text or information contained within the body of this dictation should be directly addressed to the provider for clarification.
[2025-02-08 09:06] LABS: Basophils % (Auto) 1 % (0-2.5); Eosinophils # (Auto) 0.1 Thou/mm3 (0.0-0.5); Eosinophils % (Auto) 1 % (0-10); Hematocrit 37.1 % (41.0-53.0); Hemoglobin 13.2 g/dL (13.5-16.0); Immature Granulocytes % (Auto) 0 % (0-0); Immature Granulocytes Auto 0.01 Thou/mm3 (0.00-0.00); Lymphocytes # (Auto) 1.5 Thou/mm3 (1.0-4.8); Lymphocytes % (Auto) 35 % (10-50); Mean Corpuscular HGB Conc 35.6 g/dl (31.0-37.0); Mean Corpuscular Volume 79 fL (80-100); Monocytes # (Auto) 0.4 Thou/mm3 (0.0-0.8); Monocytes % (Auto) 9 % (0-12); Neutrophils # (Auto) 2.4 Thou/mm3 (1.8-7.7); Neutrophils % (Auto) 54 % (37-80); Nucleated Red Blood Cell % 0 /100 WBC (0); Platelet Count 116 Thou/mm3 (140-440); RDW Standard Deviation 37.5 fL (35.1-43.9); Red Blood Count 4.71 Miln/mm3 (4.50-5.90); White Blood Count 4.4 Thou/mm3 (3.8-10.6)
[2025-02-08 09:33] LABS: Alanine Aminotransferase 42 U/L (10-49); Albumin, Serum 4.5 gm/dL (3.5-5.0); Albumin/Globulin Ratio 1.5 (1.2-2.2); Alkaline Phosphatase 107 U/L (46-116); Anion Gap 10 (7-16); Aspartate Amino Transferase 48 U/L (0-34); BUN/Creatinine Ratio 25 Ratio (12-20); Bilirubin,Total 0.6 mg/dL (0.3-1.2); Blood Urea Nitrogen 15 mg/dL (9-23); Calcium 9.1 mg/dL (8.3-10.6); Calcium (Corrected) 9.1 mg/dL (8.5-10.1); Carbon Dioxide 22.1 mMol/L (20.0-31.0); Chloride 104 mMol/L (98-107); Creatinine (Component) 0.6 mg/dL (0.6-1.3); Globulin 3.1 gm/dL (2.3-3.5); Glucose 136 mg/dL (74-106); Osmolality,Calculated 274 (275-295); Potassium 3.8 mMol/L (3.4-5.1); Sodium 136 mMol/L (136-145); Total Protein 7.6 gm/dL (5.7-8.2); eGFR > 60 See Note
[2025-02-08 10:33] LABS: Glucose Estimated Average 200 mg/dL (80-131); Hemoglobin A1C 8.6 % Hgb (4.8-6.0)
[2025-02-22 09:07] LABS: Basophils % (Auto) 1 % (0-2.5); Eosinophils # (Auto) 0.1 Thou/mm3 (0.0-0.5); Eosinophils % (Auto) 1 % (0-10); Hematocrit 38.1 % (41.0-53.0); Hemoglobin 13.1 g/dL (13.5-16.0); Immature Granulocytes % (Auto) 0 % (0-0); Immature Granulocytes Auto 0.01 Thou/mm3 (0.00-0.00); Lymphocytes # (Auto) 1.3 Thou/mm3 (1.0-4.8); Lymphocytes % (Auto) 32 % (10-50); Mean Corpuscular HGB Conc 34.4 g/dl (31.0-37.0); Mean Corpuscular Hemoglobin 27.3 pg (25.0-35.0); Mean Corpuscular Volume 79 fL (80-100); Monocytes # (Auto) 0.4 Thou/mm3 (0.0-0.8); Monocytes % (Auto) 10 % (0-12); Neutrophils # (Auto) 2.3 Thou/mm3 (1.8-7.7); Neutrophils % (Auto) 56 % (37-80); Nucleated Red Blood Cell % 0 /100 WBC (0); Platelet Count 104 Thou/mm3 (140-440); RDW Standard Deviation 39.3 fL (35.1-43.9); White Blood Count 4.1 Thou/mm3 (3.8-10.6)
[2025-02-22 09:30] LABS: Alanine Aminotransferase 44 U/L (10-49); Albumin, Serum 4.4 gm/dL (3.5-5.0); Albumin/Globulin Ratio 1.5 (1.2-2.2); Alkaline Phosphatase 123 U/L (46-116); Anion Gap 12 (7-16); Aspartate Amino Transferase 44 U/L (0-34); BUN/Creatinine Ratio 27 Ratio (12-20); Bilirubin,Total 0.5 mg/dL (0.3-1.2); Blood Urea Nitrogen 19 mg/dL (9-23); Calcium 9.1 mg/dL (8.3-10.6); Calcium (Corrected) 9.1 mg/dL (8.5-10.1); Carbon Dioxide 22.5 mMol/L (20.0-31.0); Chloride 103 mMol/L (98-107); Creatinine (Component) 0.7 mg/dL (0.6-1.3); Glucose 306 mg/dL (74-106); Osmolality,Calculated 288 (275-295); Potassium 3.9 mMol/L (3.4-5.1); Sodium 137 mMol/L (136-145); Total Protein 7.4 gm/dL (5.7-8.2); eGFR > 60 See Note
[2025-02-22 09:32] LABS: Carcinoembryonic Antigen 2.1 ng/mL (0.0-5.0)
== END 2025-03-06 23:59 | disposition home or self-care (01) ==
LOC: SCTC 09:44
PROVIDERS: PCP Student in an Organized Health Care Education/Training Program; Referring Provider Student in an Organized Health Care Education/Training Program; Visit Provider Internal Medicine Hematology & Oncology
DX: Z51.11 Encounter for antineoplastic chemotherapy (principal); C18.9 Malignant neoplasm of colon, unspecified
CPT/HCPCS: 36591; 80053; 82378; 83036; 85025; 96367; 96368; 96411; 96413; 96415; 96416; 99212; A4216; J0640; J1100; J1453; J1642; J2405; J7050; J7060; J9190; J9263; G0463

== ENCOUNTER 2025-03-23 13:10 | Outpatient (RCR) | payer MEDICAID, SELFPAY ==
[2025-03-22 11:30] LABS: Basophils % (Auto) 1 % (0-2.5); Eosinophils # (Auto) 0.1 Thou/mm3 (0.0-0.5); Eosinophils % (Auto) 1 % (0-10); Hematocrit 40.1 % (41.0-53.0); Immature Granulocytes % (Auto) 0 % (0-0); Immature Granulocytes Auto 0.01 Thou/mm3 (0.00-0.00); Lymphocytes # (Auto) 1.8 Thou/mm3 (1.0-4.8); Lymphocytes % (Auto) 29 % (10-50); Mean Corpuscular HGB Conc 34.9 g/dl (31.0-37.0); Mean Corpuscular Hemoglobin 27.2 pg (25.0-35.0); Mean Corpuscular Volume 78 fL (80-100); Monocytes # (Auto) 0.4 Thou/mm3 (0.0-0.8); Monocytes % (Auto) 7 % (0-12); Neutrophils # (Auto) 3.8 Thou/mm3 (1.8-7.7); Neutrophils % (Auto) 62 % (37-80); Nucleated Red Blood Cell % 0 /100 WBC (0); Platelet Count 165 Thou/mm3 (140-440); RDW Standard Deviation 38.1 fL (35.1-43.9); Red Blood Count 5.15 Miln/mm3 (4.50-5.90); White Blood Count 6.1 Thou/mm3 (3.8-10.6)
[2025-03-22 11:51] LABS: Alanine Aminotransferase 34 U/L (10-49); Albumin, Serum 4.5 gm/dL (3.5-5.0); Albumin/Globulin Ratio 1.6 (1.2-2.2); Alkaline Phosphatase 125 U/L (46-116); Anion Gap 12 (7-16); Aspartate Amino Transferase 30 U/L (0-34); BUN/Creatinine Ratio 27 Ratio (12-20); Bilirubin,Total 0.6 mg/dL (0.3-1.2); Blood Urea Nitrogen 16 mg/dL (9-23); Calcium 9.5 mg/dL (8.3-10.6); Calcium (Corrected) 9.5 mg/dL (8.5-10.1); Carbon Dioxide 25.3 mMol/L (20.0-31.0); Chloride 101 mMol/L (98-107); Creatinine (Component) 0.6 mg/dL (0.6-1.3); Globulin 2.8 gm/dL (2.3-3.5); Glucose 168 mg/dL (74-106); Osmolality,Calculated 280 (275-295); Sodium 138 mMol/L (136-145); Total Protein 7.3 gm/dL (5.7-8.2); eGFR > 60 See Note
--- NOTE | 2025-03-29 00:33 | CTCFLWUP_ITS ---
Patient: RAY PULIDO : 1980 Page 3 of 4 FOLLOW UP NOTE DATE OF SERVICE: 03/23/2025 NAME: RAY PULIDO ACCOUNT: [id number] : 1980 AGE: 44 INTERVAL HISTORY: Summary Ray, a male with stage 3 colon cancer, presented for follow-up after completing 10 of 12 planned Folfax chemotherapy treatments. Recent cancer marker blood tests were negative. He reported no new symptoms or concerns. Patient has completed chemotherapy. He has his blood work done to evaluate for cancer and is all negative Chief Complaint Follow-up for colon cancer treatment History of Present Illness Ray is a [place]-speaking patient with a history of stage 3 colon cancer who presents for follow-up after completing chemotherapy treatment he completed FOLFOX chemotherapy treatments for his colon cancer. Medical History - Stage 3 colon cancer, treated with chemotherapy Surgical History - Colon cancer surgery (specific procedure not mentioned) Medications and Supplements - Folfax Chemotherapy - Completed 10 treatments out of 12 total planned Social History - Language: [place]-speaking, requires fly frame tender Patient is on adjuvant FOLFOX and doing well. Patient have completed 6 cycles of chemotherapy with FOLFOX. ONCOLOGY HISTORY: DIAGNOSIS: Malignant neoplasm of colon, unspecified [ICD10] C18.9 DATE OF DIAGNOSIS: 07/29/2024 STAGE/TNM: IIIC T4a N2b M0 TREATMENT HISTORY: Care?Plan Start?Date Cycle Day Intent mFOLFOX-6?-?5FU?400?+?2400?CIV,?LVR?400,OXALIplat?85 09/22/2024 1 14 Curative?(adjuvant) HISTORY OF PRESENT ILLNESS: 44 yr old with new diagnosis of colon cancer. His baseline weight is 185 and lost weight to 142 pounds. He have healed well. Surgery was in July 2024. He does not have colostomy bag . OTHER MEDICAL HISTORY/CONDITIONS: HYPERTENSION DIABETES MELLITUS ON METFORMIN COLON SX, EXPLORATORY LAPAROTOMY 07/30/24 RUC PORT INSERTION 08/26/24 FAMILY HISTORY: Cancer History - Father - DENIES Cancer History - Mother - DENIES Cancer History - Sibling - DENIES, HAS 14 SIBLINGS WITH NO HISTORY CANCER Cancer History - Children - DENIES Cancer History - - COLON CANCER DX 07/30/24 SOCIAL HISTORY: Occupational History - ADMISSIONS OFFICER Education Level - Completed something less than 8th grade Exercise Regularly - Yes 2-3 times a week Marital Status - Cultural/Religion Considerati - BAPTISM Tobacco Pack per Day - 0 Tobacco Use Note - DENIES ETOH Use Note - 1 CASE OF BEER A WEEK FOR MORE THAN 10YEARS, QUIT 2MONTHS AG Drug Note - DENIES Social History Note 2 - LIVES WITH AND 3 CHILDREN MEDICATIONS: 1. insulin glargine - 100 unit/mL 10 Units As directed 2. lisinopril - 5 mg 1 tab Daily 3. metFORMIN - 1,000 mg 1 tab Twice a Day Medications Last Reconciled by Riddhi Evans MA on 02/04/2025 (Reconcile on Approval: ?) ALLERGIES: No Known Allergies REVIEW OF SYSTEMS: A complete 14-point review of systems was performed and is negative except as noted in interval history. PHYSICAL EXAMINATION: VITAL SIGNS: Temperature?99.7, B/P?134/81, Oxygen?Saturation?99% PAIN: 0 - No pain ECOG Performance Status: 0 - Asymptomatic and fully active GENERAL APPEARANCE: Appears well, in no apparent distress, appropriately interactive. HEENT: Normocephalic, no temporal wasting, normal conjunctiva, no scleral icterus, normal hearing, lips without lesions, neck normal range of motion. CARDIOVASCULAR: Not assessed. PULMONARY: Normal respiratory effort, no respiratory distress or use of accessory muscles, speaking in full sentences, no tachypnea. EXTREMITIES: No pedal edema or cyanosis. SKIN: Normal skin appearance. NEUROLOGIC: Alert and oriented x4. PSHYCHIATRIC: Appropriate affect, mood normal, behavior normal, intact thought and speech. LABORATORY DATA: I have personally reviewed and interpreted each of the patient?s relevant lab tests, abnormal findings are below: Date 02/23/25 03/22/25 ??WHITE?BLOOD?COUNT?(Thou/mm3) ? 6.1 ??RED?BLOOD?COUNT?(Miln/mm3) ? 5.15 ??HEMOGLOBIN?(gm/dl) ? 14.0 ??HEMATOCRIT?(%) ? 40.1?L ??PLATELET?COUNT?(Thou/mm3) ? 165 ??NEUTROPHILS?%,?AUTO?(%) ? 62 ??LYMPH?%,?AUTO?(%) ? 29 ??NEUTROPHILS,?AUTO?(Thou/mm3) ? 3.8 ??GLUCOSE,RANDOM?(mg/dL) 240 168?H ??BLOOD?UREA?NITROGEN?(mg/dL) ? 16 ??CREATININE?(mg/dL) ? 0.60 ??SODIUM?(mmol/L) ? 138 ??POTASSIUM?(mmol/L) ? 4.0 ??CHLORIDE?(mmol/L) ? 101 ??CrCl?(CandG)?(ml/min) ? 152.37 ??AST/SGOT?(Unit/L) ? 30 ??ALT/SGPT?(Unit/L) ? 34 ??ALKALINE?PHOSPHATASE?(Unit/L) ? 125?H ??BILIRUBIN,?TOTAL?(mg/dL) ? 0.6 ??PROTEIN?TOTAL?(gm/dl) ? 7.3 ??ALBUMIN,?SERUM?(gm/dl) ? 4.5 ??GLOBULIN?(gm/dl) ? 2.8 ??ALBUMIN/GLOBULIN?RATIO ? 1.6 ??CALCIUM,?SERUM?(mg/dL) ? 9.5 ??CALCIUM?SERUM?(CORRECTED)?(mg/dL) ? 9.5 ??CEA?(O*)?(ng/ml) ? 2.0 ASSESSMENT/PLAN: 1) Colon cancer stage 3C t4b N2b M0 2) High risk features include T4b disease, neural vascular invasion and lymph nodes positive and involvement of the visceral p peritoneum. No perforation Ray, male patient with history of stage 3 colon cancer, completed 10 out of 12 planned Folfax chemotherapy treatments. Stage 3 Colon Cancer Patient completed chemotherapy Follows with GI for his colonoscopies Urvashi is negative No evidence of malignancy Patient have CT scan scheduled RTC in 2 months ORDERS: Order # Description [id number] Comprehensive Metabolic Panel - 12 + CBC with Auto Diff + CEA [id number] CT Scan + Abdomen and Pelvis + Chest + With W/O Contrast [id number] MD Follow Up 3 Months RETURN TO CLINIC: BILLING AND COMPLIANCE: I reviewed external records from providers outside my specialty as summarized above. I spent a total of 50 minutes on this patient?s care on the day of their visit excluding time spent related to any billed procedures. This time includes time spent with the patient as well as time spent documenting in the medical record, reviewing patients records and tests, obtaining history, placing orders, communicating with other healthcare professionals, counseling the patient, family or caregiver, and/or care coordination for the diagnoses above. Electronically Signed by: {Object.Sanct_ID*PnP.NameFL@M}, {Object.Sanct_ID*PnP.Suffix@U} D: {Object.Sanct_Date} T: {Object.Sanct_Time} CC: PCP: Lance Ibanez Referring: Lance Ibanez This document was completed utilizing speech recognition software. Grammatical errors, random word insertions, pronoun errors, and incomplete sentences are an occasional consequence of this system due to software limitations, ambient noise, and hardware issues. Any formal questions or concerns about the content, text or information contained within the body of this dictation should be directly addressed to the provider for clarification.
== END 2025-04-05 23:59 | disposition home or self-care (01) ==
LOC: SCTC 13:10
PROVIDERS: PCP Family Medicine; Referring Provider Family Medicine; Visit Provider Internal Medicine Hematology & Oncology
DX: Z08 Encounter for follow-up examination after completed treatment for malignant neoplasm (principal); Z85.038 Personal history of other malignant neoplasm of large intestine; Z92.21 Personal history of antineoplastic chemotherapy
CPT/HCPCS: 36591; 80053; 82378; 85025; 99212; A4216; J1642; G0463

== ENCOUNTER → 2025-03-31 | Outpatient (CLI) | payer MEDICAID, SELFPAY ==
--- NOTE | 2025-03-31 10:00 | XR_ITS ---
Examination: CT chest with intravenous contrast CT abdomen with intravenous contrast CT pelvis with intravenous contrast CT chest without intravenous contrast CT abdomen without intravenous contrast CT pelvis without intravenous contrast 2-D coronal and sagittal reconstructions Time of exam: March 31, [address] chest abdomen pelvis July 29, 2024 INDICATIONS: Diagnosis malignant neoplasm colon restaging, diarrhea one year CTDI: vol (mGy) : 16.3 DLP: (mGycm): 936 Technique: Multiple axial images of the chest, abdomen and pelvis with intravenous contrast, 3.0 mm slice thickness. Images obtained post intravenous injection Isovue 370 60 cc. 2-D sagittal and coronal reconstructions. Low dose protocols were performed. One or more of the following dose reduction techniques were used; automated exposure control, adjustment of the mA and/or KV according to patient size, use of iterative reconstruction technique. Findings: No thoracic aortic aneurysm dilatation No pulmonary artery filling defects on this non-CTA study No paratracheal tracheobronchial or bronchopulmonary adenopathy 2 mm pulmonary nodule right upper lobe image 124 No pneumonia or pulmonary edema No pleural disease No visualized liver or splenic lesion Contracted gallbladder No pancreatic mass Aorta normal size No interval abdominal or pelvic lymphadenopathy No renal or ureteral calculi, no hydronephrosis No current bowel obstruction No pericecal inflammatory change No diverticulitis No bladder mass or bladder calculi No prostatomegaly Moderate osteopenia No osseous metastatic disease depicted IMPRESSION: Interval 2 mm pulmonary nodule right upper lobe, suggest continued 6 month follow-up CT chest without contrast No interval metastatic disease in the abdomen or pelvis
== END | disposition home or self-care (01) ==
LOC: CCTX 09:32
PROVIDERS: Referring Provider Internal Medicine Hematology & Oncology; Visit Provider Internal Medicine Hematology & Oncology
DX: R91.1 Solitary pulmonary nodule (principal); C18.9 Malignant neoplasm of colon, unspecified
CPT/HCPCS: 71270; 74178; A4649; Q9967

== ENCOUNTER 2025-05-24 08:40 | Outpatient (AMB) | payer MEDICAID, SELFPAY ==
--- NOTE | 2025-05-24 08:48 | GSCOFFNT_ITS ---
Vital Signs - [facility] 05/24/25 08:54 Height 1.75 m Height Method Measured Weight 68.549 kg Weight Measurement Method Standing Scale BMI 22.4 BP 147/90 H Blood Pressure Source Automatic Cuff Blood Pressure Location Left Upper Arm Position Sitting Respiration 18 Pulse 95 Pulse Source Monitor Temp 97.5 F Temp Source Temporal Artery Scan Pulse Oximetry (%) 98 Oxygen Delivery Method Room Air Med/Allergies Allergies & Medications Allergies No Known Allergies Allergy (Verified 05/24/25 08:54) Medication Reconciliation gabapentin 100 mg capsule 200 mg PO BID PRN pain 08/25/24 [History Confirmed 05/24/25] simethicone 80 mg chewable tablet 80 mg PO TID PRN abdominal distention #90 tabs 08/26/24 [Rx Confirmed 05/24/25] dapagliflozin propanediol 5 mg tablet (Farxiga) 5 mg PO QAM #30 tabs 01/28/25 [Rx Confirmed 05/24/25] metformin 1,000 mg tablet 1,000 mg PO BIDWMEAL #60 tabs 01/28/25 [Rx Confirmed 05/24/25] insulin glargine 100 unit/mL (3 mL) subcutaneous pen (Lantus Solostar U-100 Insulin) 15 unit (0.15 mL) subcut QPM #15 mL 02/18/25 [Rx Confirmed 05/24/25] lancets 23 gauge (Acti-Kavon Lancets) #100 ea 02/18/25 [Rx Confirmed 05/24/25] pen needle, diabetic 29 gauge x 1/2 (Comfort EZ Pen [place]) #100 ea 02/18/25 [Rx Confirmed 05/24/25] lisinopril 5 mg tablet 5 mg PO QDAY #30 tabs 05/06/25 [Rx Confirmed 05/24/25] MA Intake Visit Data Collection New Patient or Established: Established Patient (seen at [facility] within 3 years) Seen by Clinical Staff ONLY (RN/MA): No Reason for Visit:: CANCER F/U Pain Present Currently: No Pain Scale Used: MorfinYulia/Numerical Safety Administrator Required: Yes PCP or OBGYN visit in last 3 months: Yes Hx Now: No Do You Feel Safe at Home: Yes Authorities Contacted: N/A Smoking Status Smoking Status: Never smoker Immunization / Flu Flu Vaccine in the Last 12 Months: Yes Flu Vaccine Exclusion Criteria: Already Received Past Medical History Past Medical History NEUROLOGIC: Negative Neurological Disorders or Seizures CARDIAC: Positive Cardiac Disorders and Hypertension; Negative Congestive Heart Failure RESPIRATORY: Negative Chronic Obstructive Pulmonary Disease (COPD) or Asthma GASTROINTESTINAL: Positive Colorectal Cancer (July 2024); Negative Gastrointestinal Disorders (Constipation) or Hepatitis GENITOURINARY: Negative Genitourinary Disorders or Renal Disease ENDOCRINE: Positive Endocrine Disorders and Diabetes Mellitus Type 2; Negative Diabetes Mellitus Type 1 HEMATOLOGIC: Positive Blood Disorders and Anemia; Negative Sickle Cell Disease OTHER HISTORY: Positive Hospitalization (colon resection), Chicken Pox, Measles, Cancer and Colorectal Cancer (July 2024); Negative Shingles, Blood Transfusions, Blood Transfusion Reaction or Anesthesia Reactions Family History FAMILY HISTORY: Positive Family Surgery; Negative Family Psychiatric Problems, Family Respiratory Disorders, Family Cardiac Disorders, Family Gastrointestinal Problems, Family Cancer or Family Anesthesia Reaction Surgical History SURGICAL: Positive Bowel Surgery (Bowel resection) Social History SMOKING STATUS: Smoking status: Never smoker ALCOHOL: Alcohol Intake: Former HOUSING: Housing: Apartment LIVES WITH: Lives With: Spouse HPI HPI Narrative 44M with stage III adenoCA of colon s/p segmental colectomy 07/30 here for planned follow up. Pt reports feeling well overall; he has no abdominal pain, no nausea, is eating well and has gained about 7 lbs. He completed his chemotherapy a few months ago and has noted some peripheral neuropathy as well as shoulder pain but that pain is gradually improving. Pt has not had a colonoscopy aside from the one done during his hospitalization which was not complete due to his obstructing transverse colon mass ROS Review of Systems Systems Reviewed: All systems reviewed, normal except as documented Objective/Exam General General Appearance: alert, cooperative and well groomed Resp Respiratory exam: Absent respiratory distress Results CT CAP reviewed Assessment & Plan Diagnosis / Problem List (1) Colorectal cancer, stage III: Status: Acute Assessment & Plan: 44M s/p transverse colectomy for stage III adenoCA 07/2024, recovering well overall and completed chemotherapy approx 3 mos ago. I explained benefits/risks of colonoscopy including bleeding, perforation requiring emergency surgery as well as the possibility of needing to abort prematurely for safety. Pt expressed understanding and agrees to proceed Office Procedures GNS Level of Care Nursing/Assessment Patient Status: Established Patient Nursing Assessment/Reassesment: Medication Reconciliation, Update PMH in EMR and Vital Signs Coordination of Care: Complex Care and Chronic Disease 1-5, Consent,records obtained, informed consent, Education Simp Pt/Fam, Results/Orders obtained and Staff clarify orders Special Needs: Language special needs Established Patient Charge Established Patient Point Assignment: 90 Established Patient Point Charge: EP Level 3 (80-115) Patient Portal Questionaires Social History Living Situation History Housing: Apartment Tobacco History Smoking Status: Never smoker Alcohol History Alcohol Intake: Former Domestic Abuse History Do You Feel Safe at Home: Yes Review of Systems Report any current symptoms Only answer those that you have currently: Past Medical History Past Medical History Have you ever been diagnosed with any of the following: Neurological Problems Seizures: No Cardiology Problems Congestive Heart Failure: No Hypertension: Yes Respiratory Problems Chronic Obstructive Pulmonary Disease (COPD): No Asthma: No Stomache/Intestinal Problems Hepatitis: No Colorectal Cancer: Yes (July 2024) Genital/Urinary Problems Renal Disease: No Endocrine Problems Diabetes Mellitus Type 1: No Diabetes Mellitus Type 2: Yes Blood Problems Anemia: Yes Sickle Cell Disease: No Other Problems Hospitalization: Yes (colon resection) Shingles: No Blood Transfusions: No Blood Transfusion Reaction: No Anesthesia Reactions: No Chicken Pox: Yes Measles: Yes Cancer: Yes
[2025-05-24 08:54] VITALS: BP 147/90; PULSE 95; RESP 18; TEMP 36.4; O2SAT 98; BMI 22.4
== END 2025-05-24 09:38 | disposition home or self-care (01) ==
LOC: HODSRG 08:40
PROVIDERS: Supervising Provider Surgery; Visit Provider Surgery
DX: C19 Malignant neoplasm of rectosigmoid junction (principal); Z92.21 Personal history of antineoplastic chemotherapy; I10 Essential (primary) hypertension; E11.9 Type 2 diabetes mellitus without complications
CPT/HCPCS: 99213; G0463

== ENCOUNTER 2025-06-01 14:16 | Outpatient (AMB) | payer MEDICAID, SELFPAY ==
[2025-06-01 14:29] VITALS: BP 136/86; PULSE 103; RESP 18; TEMP 36.8; O2SAT 98; BMI 22.6
--- NOTE | 2025-06-01 14:29 | ACNOTE_ITS ---
Vital Signs 06/01/25 14:29 Height 1.75 m Height Method Stated Weight 69.173 kg Weight Measurement Method Standing Scale BMI 22.6 BP 136/86 H Blood Pressure Source Automatic Cuff Blood Pressure Location Left Upper Arm Position Sitting Respiration 18 Pulse 103 H Pulse Source Monitor Temp 98.3 F Temp Source Oral Pulse Oximetry (%) 98 Oxygen Delivery Method Room Air Allergies/Meds Allergies & Medications Allergies No Known Allergies Allergy (Verified 06/01/25 14:30) Medication Reconciliation simethicone 80 mg chewable tablet 80 mg PO TID PRN abdominal distention #90 tabs 08/26/24 [Rx Confirmed 06/01/25] peg 3350-electrolytes 236 gram-22.74 gram-6.74 gram-5.86 gram solution (Golytely) 240 ml PO Q10M Colonoscopy prep #4,000 mL 05/31/25 [Rx Confirmed 06/01/25] dapagliflozin propanediol 5 mg tablet (Farxiga) 5 mg PO QAM #30 tabs 06/01/25 [Rx] gabapentin 100 mg capsule 200 mg (2 x 100 mg) PO BID PRN pain #60 caps 06/01/25 [Rx] insulin glargine 100 unit/mL (3 mL) subcutaneous pen (Lantus Solostar U-100 Insulin) 15 unit (0.15 mL) subcut QPM #15 mL 06/01/25 [Rx] lancets 23 gauge (Acti-Kavon Lancets) #100 ea 06/01/25 [Rx] lisinopril 5 mg tablet 5 mg PO QDAY #30 tabs 06/01/25 [Rx] metformin 1,000 mg tablet 1,000 mg PO BIDWMEAL #60 tabs 06/01/25 [Rx] pen needle, diabetic 29 gauge x 1/2 (Comfort EZ Pen [place]) #100 ea 06/01/25 [Rx] MA Intake Visit Data Collection New Patient or Established: Established Patient (seen at [facility] within 3 years) Seen by Clinical Staff ONLY (RN/MA): No Pain Present Currently: No Pain scale:: 0 Pain Scale Used: Morfin-Jimenes/Numerical PCP or OBGYN visit in last 3 months: No Do You Feel Safe at Home: Yes Authorities Contacted: N/A Smoking Status Smoking Status: Never smoker Immunization / Flu Flu Vaccine in the Last 12 Months: No Flu Vaccine Exclusion Criteria: No Exclusion Criteria Past Medical History Past Medical History NEUROLOGIC: Negative Neurological Disorders or Seizures CARDIAC: Positive Cardiac Disorders and Hypertension; Negative Congestive Heart Failure RESPIRATORY: Negative Chronic Obstructive Pulmonary Disease (COPD) or Asthma GASTROINTESTINAL: Positive Colorectal Cancer (July 2024); Negative Gastrointestinal Disorders (Constipation) or Hepatitis GENITOURINARY: Negative Genitourinary Disorders or Renal Disease ENDOCRINE: Positive Endocrine Disorders and Diabetes Mellitus Type 2; Negative Diabetes Mellitus Type 1 HEMATOLOGIC: Positive Blood Disorders and Anemia; Negative Sickle Cell Disease OTHER HISTORY: Positive Hospitalization (colon resection), Chicken Pox, Measles, Cancer and Colorectal Cancer (July 2024); Negative Shingles, Blood Transfusions, Blood Transfusion Reaction or Anesthesia Reactions Family History FAMILY HISTORY: Positive Family Surgery; Negative Family Psychiatric Problems, Family Respiratory Disorders, Family Cardiac Disorders, Family Gastrointestinal Problems, Family Cancer or Family Anesthesia Reaction Surgical History SURGICAL: Positive Bowel Surgery (Bowel resection) Social History SMOKING STATUS: Smoking status: Never smoker ALCOHOL: Alcohol Intake: Former HOUSING: Housing: Apartment LIVES WITH: Lives With: Spouse Patient Portal Shaan Social History Living Situation History Housing: Apartment Tobacco History Smoking Status: Never smoker Alcohol History Alcohol Intake: Former Domestic Abuse History Do You Feel Safe at Home: Yes Review of Systems Report any current symptoms Only answer those that you have currently: Past Medical History Past Medical History Have you ever been diagnosed with any of the following: Neurological Problems Seizures: No Cardiology Problems Congestive Heart Failure: No Hypertension: Yes Respiratory Problems Chronic Obstructive Pulmonary Disease (COPD): No Asthma: No Stomache/Intestinal Problems Hepatitis: No Colorectal Cancer: Yes (July 2024) Genital/Urinary Problems Renal Disease: No Endocrine Problems Diabetes Mellitus Type 1: No Diabetes Mellitus Type 2: Yes Blood Problems Anemia: Yes Sickle Cell Disease: No Other Problems Hospitalization: Yes (colon resection) Shingles: No Blood Transfusions: No Blood Transfusion Reaction: No Anesthesia Reactions: No Chicken Pox: Yes Measles: Yes Cancer: Yes History of Present Illness HPI Narrative Patient is a 44 yo male with recently diagnosed invasive adenocarcinoma s/p segment colectomy with colo-colo anastamosis and newly diagnosed diabetes mellitus that presented to [facility] for medication refill and follow-up. Patient on chemotherapy with FOLFOX AJDUVANT and has one more dose to complete chemo. Patient is pending PET scan to rule out any mets after completing chemo. Patient also has a follow up appointment with Dr. Martinez. Patient states he is tolerating medications well and appetite is well. Patient denying any shortness of breath, chest pain, nausea, vomiting, fever, chills, abdominal pain, or melena/hematochezia or dysurea. Appetite is well and patient is tolerating medication as well. 06/01/2025: Patient seen and evaluated at the [facility]. Patients last chemotherapy was around 3 months ago. Patient states feeling neuropathy in all 4 extremities described as tingling and pins and needle like sensations, however has improved over the last few weeks. Patient continues with symptoms patient prescribed gabapentin as needed for neuropathy. No other complaints at this time. Objective/Exam Narrative Physical exam: Physical Exam GENERAL: NAD, AAOx3 HEENT: Moist mucosa. Eyes open, symmetrical, & clear CARDIO: Heart RRR, no obvious murmurs PULM: No noted coughing/dyspnea CTA B/L, no R/W/R GI: Abdomen soft, nondistended, no pain on palpation. BSx4 SKIN/MSK/EXT: No wounds/rashes/edema/amputations, no pain on palpation. Pedal pulses present B/L NEURO: AAOx3, no focal neuro deficits, able to move all 4 extremities Assessment & Plan Diagnosis / Problem List (1) Diabetes mellitus with insulin therapy: Status: Acute Plan: BS at home around 90-140s. Continue current management. (2) Peripheral neuropathic pain: Status: Acute Plan started gabapentin. Office Procedures [facility] Level of Care Nursing/Assessment Patient Status: Established Patient Nursing Assessment/Reassessment: Medication Reconciliation, Update PMH in EMR and Vital Signs Coordination of Care: Complex Care and Chronic Disease 1-5, Education Complex Pt/Fam, Results/Orders obtained and Staff clarify orders Established Patient Charge Established Patient Point Assignment: 90 Established Patient Point Charge: EP Level 3 (80-115)
== END 2025-06-01 14:54 | disposition home or self-care (01) ==
LOC: HODAHC 14:16
PROVIDERS: PCP Student in an Organized Health Care Education/Training Program; Referring Provider Student in an Organized Health Care Education/Training Program; Supervising Provider Internal Medicine; Visit Provider Student in an Organized Health Care Education/Training Program
DX: E11.42 Type 2 diabetes mellitus with diabetic polyneuropathy (principal); Z79.4 Long term (current) use of insulin
CPT/HCPCS: 99213; G0463

== ENCOUNTER 2025-06-03 06:50 | Day surgery (SDC) | payer MEDICAID, SELFPAY ==
[2025-06-03] VITALS (8 sets, daily range): BP systolic 131–154; BP diastolic 85–102; PULSE 97–114; RESP 14–26; TEMP 36.1–36.6; O2SAT 99–100; BMI 20.2
[2025-06-03] MEDS: MIDAZOLAM INJ 1 MG/ML VIAL 2 ML (ASD USE ONLY) 2 MG IVP (08:17)
[2025-06-03] MEDS: RINGERS LACTATED 1000 ML 1,000 ML 125 ML IV (08:17)
[2025-06-03] MEDS: fentaNYL CIT INJ 50 mCg/ML AMP 2ML (ASD USE ONLY) IVP (08:17)
== END 2025-06-03 09:04 | disposition home or self-care (01) ==
PROVIDERS: PCP Student in an Organized Health Care Education/Training Program; Referring Provider Surgery; Visit Provider Surgery
PROC: 0DBE8ZX Excision of Large Intestine, Via Natural or Artificial Opening Endoscopic, Diagnostic (ICD-10-PCS; CPT 45380; principal; 2025-06-03 08:30)
DX: Z12.11 Encounter for screening for malignant neoplasm of colon (principal); Z85.038 Personal history of other malignant neoplasm of large intestine; K64.8 Other hemorrhoids; K57.30 Diverticulosis of large intestine without perforation or abscess without bleeding
CPT/HCPCS: 45378; A4649; J1200; J2250; J3010; J7120

== ENCOUNTER 2025-06-14 09:12 | Outpatient (AMB) | payer MEDICAID, SELFPAY ==
--- NOTE | 2025-06-14 09:19 | GSCOFFNT_ITS ---
Vital Signs - [facility] 06/14/25 09:23 Height 1.75 m Height Method Measured Weight 68.748 kg Weight Measurement Method Standing Scale BMI 22.4 BP 129/82 Blood Pressure Source Automatic Cuff Blood Pressure Location Left Upper Arm Position Sitting Respiration 16 Pulse 94 Pulse Source Monitor Temp 97.7 F Temp Source Temporal Artery Scan Pulse Oximetry (%) 98 Oxygen Delivery Method Room Air Med/Allergies Allergies & Medications Allergies No Known Allergies Allergy (Verified 06/14/25 09:24) Medication Reconciliation dapagliflozin propanediol 5 mg tablet (Farxiga) 5 mg PO QAM #30 tabs 06/01/25 [Rx Confirmed 06/14/25] insulin glargine 100 unit/mL (3 mL) subcutaneous pen (Lantus Solostar U-100 Insulin) 15 unit (0.15 mL) subcut QPM #15 mL 06/01/25 [Rx Confirmed 06/14/25] lancets 23 gauge (Acti-Kavon Lancets) #100 ea 06/01/25 [Rx Confirmed 06/14/25] lisinopril 5 mg tablet 5 mg PO QDAY #30 tabs 06/01/25 [Rx Confirmed 06/14/25] metformin 1,000 mg tablet 1,000 mg PO BIDWMEAL #60 tabs 06/01/25 [Rx Confirmed 06/14/25] pen needle, diabetic 29 gauge x 1/2 (Comfort EZ Pen [place]) #100 ea 06/01/25 [Rx Confirmed 06/14/25] MA Intake Visit Data Collection New Patient or Established: Established Patient (seen at [facility] within 3 years) Seen by Clinical Staff ONLY (RN/MA): No Reason for Visit:: F/U COLONOSCOPY Pain Present Currently: No Pain Scale Used: Morfin-Jimenes/Numerical Call Center Representative Required: Yes PCP or OBGYN visit in last 3 months: Yes Hx Now: No Do You Feel Safe at Home: Yes Authorities Contacted: N/A Smoking Status Smoking Status: Never smoker Immunization / Flu Flu Vaccine in the Last 12 Months: Yes Flu Vaccine Exclusion Criteria: Already Received Past Medical History Past Medical History NEUROLOGIC: Negative Neurological Disorders or Seizures CARDIAC: Positive Cardiac Disorders and Hypertension; Negative Congestive Heart Failure RESPIRATORY: Negative Chronic Obstructive Pulmonary Disease (COPD) or Asthma GASTROINTESTINAL: Positive Colorectal Cancer (July 2024); Negative Gastrointestinal Disorders (Constipation) or Hepatitis GENITOURINARY: Negative Genitourinary Disorders or Renal Disease ENDOCRINE: Positive Endocrine Disorders and Diabetes Mellitus Type 2; Negative Diabetes Mellitus Type 1 HEMATOLOGIC: Positive Blood Disorders and Anemia; Negative Sickle Cell Disease OTHER HISTORY: Positive Hospitalization (colon resection), Chicken Pox, Measles, Cancer and Colorectal Cancer (July 2024); Negative Shingles, Blood Transfusions, Blood Transfusion Reaction or Anesthesia Reactions Family History FAMILY HISTORY: Positive Family Surgery; Negative Family Psychiatric Problems, Family Respiratory Disorders, Family Cardiac Disorders, Family Gastrointestinal Problems, Family Cancer or Family Anesthesia Reaction Surgical History SURGICAL: Positive Bowel Surgery (Bowel resection) Social History SMOKING STATUS: Smoking status: Never smoker ALCOHOL: Alcohol Intake: Former HOUSING: Housing: Apartment LIVES WITH: Lives With: Spouse HPI HPI Narrative 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 Pt reports feeling well with no complaints ROS Review of Systems Systems Reviewed: All systems reviewed, normal except as documented Objective/Exam General General Appearance: alert, cooperative and well groomed Resp Respiratory exam: Absent respiratory distress Results Colonoscopy report reviewed Assessment & Plan Diagnosis / Problem List (1) Colorectal cancer, stage III: Status: Acute Assessment & Plan: 44M with stage III adenoCA of colon s/p segmental colectomy 07/30 s/p surveillance colonoscopy which had suboptimal prep but was negative for any polyps or masses. I recommended repeating surveillance in 1 year due to the prep quality. All questions were answered and pt expressed understanding Office Procedures GNS Level of Care Nursing/Assessment Patient Status: Established Patient Nursing Assessment/Reassesment: Medication Reconciliation, Update PMH in EMR and Vital Signs Coordination of Care: Complex Care and Chronic Disease 1-5, Consent,records obtained, informed consent, Education Simp Pt/Fam, Results/Orders obtained and Staff clarify orders Established Patient Charge Established Patient Point Assignment: 90 Established Patient Point Charge: EP Level 3 (80-115) Patient Portal Questionaires Social History Living Situation History Housing: Apartment Tobacco History Smoking Status: Never smoker Alcohol History Alcohol Intake: Former Domestic Abuse History Do You Feel Safe at Home: Yes Review of Systems Report any current symptoms Only answer those that you have currently: Past Medical History Past Medical History Have you ever been diagnosed with any of the following: Neurological Problems Seizures: No Cardiology Problems Congestive Heart Failure: No Hypertension: Yes Respiratory Problems Chronic Obstructive Pulmonary Disease (COPD): No Asthma: No Stomache/Intestinal Problems Hepatitis: No Colorectal Cancer: Yes (July 2024) Genital/Urinary Problems Renal Disease: No Endocrine Problems Diabetes Mellitus Type 1: No Diabetes Mellitus Type 2: Yes Blood Problems Anemia: Yes Sickle Cell Disease: No Other Problems Hospitalization: Yes (colon resection) Shingles: No Blood Transfusions: No Blood Transfusion Reaction: No Anesthesia Reactions: No Chicken Pox: Yes Measles: Yes Cancer: Yes
[2025-06-14 09:23] VITALS: BP 129/82; PULSE 94; RESP 16; TEMP 36.5; O2SAT 98; BMI 22.4
== END 2025-06-14 10:06 | disposition home or self-care (01) ==
LOC: HODSRG 09:12
PROVIDERS: PCP Student in an Organized Health Care Education/Training Program; Referring Provider Student in an Organized Health Care Education/Training Program; Supervising Provider Surgery; Visit Provider Surgery
DX: K64.8 Other hemorrhoids (principal); K57.30 Diverticulosis of large intestine without perforation or abscess without bleeding; Z90.49 Acquired absence of other specified parts of digestive tract; Z85.038 Personal history of other malignant neoplasm of large intestine
CPT/HCPCS: 99213; G0463